=== PATIENT | female | born 2000 | race Hispanic/Latino ===

== ENCOUNTER 2018-08-07 17:28 | Inpatient (IN) | payer OTHER, SELFPAY ==
--- OUTSIDE RECORDS SUMMARY | 2018-08-07 17:30 | XMS REPORT | Continuity of Care Document ---
:2000 Author Organization Interface Problems Problem Status Onset Classification Date Comments Source Date Reported Discharge 09/12/2016 [place] Diagnosis: 6 Abdominal pain ABDOMINAL Active [facility] PAIN 6 [place] Discharge 05/01/2016 [facility] Diagnosis: 6 Pilonidal cyst with abscess CYST ON LOWER Active [facility] BACK 6 [place] Medications Medication Details Route Status Patient Ordering Order Source Instructions Provider Date tramadol 50 mg=1 Active MH hydrochloride 50 tab, PO, 016 [place] MG Oral Tablet BID, X 15 day, # 30 tab, 0 Refill(s) Metoclopramide 10 mg, 2 Inactive MH mL, Route: 016 [place] IVP, Drug form: INJ, ONCE, Dosing Weight 90.909, kg, Priority: STAT, Start date: 09/09/16 19:58:00 CDT, Stop date: 09/09/16 19:58:00 CDTNotes: (Same as: Reglan) Morphine 4 mg, 1 Inactive MH mL, Route: 016 [place] IVP, Drug form: INJ, ONCE, Dosing Weight 90.909, kg, Priority: STAT, Start date: 09/09/16 19:58:00 CDT, Stop date: 09/09/16 19:58:00 CDTNotes: (Same as:MORPhin e Sulfate) Saline Flush 0.9% 10 mL, Inactive MH Route: 016 [place] IVP, Drug Form: INJ, Dosing Weight 90.909, kg, PRN, PRN Line Flush, Start date: 09/09/16 19:58:00 CDT, Duration: 30 day, Stop date: 10/09/16 18:57:00 CSTNotes: (Same as: BD Posiflush) Sodium Chloride 1,000 mL, Inactive MH 0.154 MEQ/ML 2,000 016 [place] Injectable ml/hr, Solution Infuse Over: 30 minutes, Route: IV, 1,000, Drug form: INJ, ONCE, Priority: STAT, Dosing Weight 90.909 kg, Start date: 09/09/16 19:58:00 CDT, Duration: 1 doses or times, Stop date: 09/09/16 19:58:00 CDT ibuprofen 600 mg 600 mg=1 Active oral tablet tab, PO, 016 [place] Q8H, PRN SEVERE PAIN or FEVER, # 30 tab, 0 Refill(s) Acetaminophen 300 1 - 2 tab, Active MG / Codeine PO, Q4H, 016 [place] Phosphate 30 MG PRN Pain, Oral Tablet X 2 day, # [Tylenol with 20 tab, 0 Codeine #3] Refill(s) Tylenol 650 mg, 2 Inactive tab, 016 [place] Route: PO, Drug form: TAB, ONCE, Dosing Weight 95.455, kg, Priority: STAT, Start date: 04/28/16 21:22:00 CDT, Stop date: 04/28/16 21:22:00 CDTNotes: Do not exceed 4 gm/day. (Same as: Tylenol) Zofran ODT 4 mg, 1 Inactive tab, 016 [place] Route: PO, Drug form: TABDIS, ONCE, Dosing Weight 95.455, kg, Priority: STAT, Start date: 04/28/16 21:22:00 CDT, Stop date: 04/28/16 21:22:00 CDTNotes: (Same as: Zofran ODT) Morphine 4 mg, 1 Inactive mL, Route: 016 [place] IM, Drug form: INJ, ONCE, Dosing Weight 95.455, kg, Priority: STAT, Start date: 04/28/16 21:21:00 CDT, Stop date: 04/28/16 21:21:00 CDTNotes: (Same as:MORPhin e Sulfate) Allergies, Adverse Reactions, Alerts Substance Category Reaction Severity Reaction Status Date Comments Source type Reported NKDA Assertion Drug Active allergy [place] Immunizations Immunization Date Given Site Status Last Updated Comments Source Results Order Name Results Value Reference Date Interpretation Comments Source Range CHEM PANEL eGFR 103 10/31 Result Comment: The eGFR is calculated using the CKD-EPI formula. In most young, healthy individuals the eGFR will be >90 mL/ min/1.73m2. The eGFR declines with age. An eGFR of 60-89 may be normal in mL/min/1.7 some populations, particularly the elderly, for whom the CKD-EPI formula has not been extensively validated. Use of the eGFR is not recommended in the following populations: [address] Individuals with unstable creatinine concentrations, including patients and those with serious co-morbid conditions. Patients with extremes in muscle mass or diet. The data above are obtained from the National Kidney Disease Education Program (NKDEP) which additionally recommends that when the eGFR is used in patients with extremes of body mass index for purposes of drug dosing, the eGFR should be multiplied by the estimated BMI. CHEM PANEL ASPARTATE 16 unit/L 0 - 37 09/10 TRANSAMINASE [place] CHEM PANEL Total 7.1 g/dL 6.4 - 8.4 09/10 [place] CHEM PANEL Bili Total 0.5 mg/dL 0.2 - 1.3 09/10 [place] CHEM PANEL Calcium Lvl 9.3 mg/dL 8.5 - 10.5 09/10 [place] CHEM PANEL CO2 26 meq/L 24 - 32 09/10 [place] CHEM PANEL Sodium Lvl 142 meq/L 135 - 145 09/10 [place] CHEM PANEL Chloride Lvl 109 meq/L 95 - 109 09/10 [place] CHEM PANEL Potassium 3.4 meq/L 3.5 - 5.1 09/10 Lvl [place] CHEM PANEL Creatinine 0.83 mg/dL 0.50 - 09/10 MH Lvl 1.40 [place] CHEM PANEL Glucose Lvl 107 mg/dL 70 - 99 09/10 [place] CHEM PANEL BUN 10 mg/dL 7 - 22 09/10 [place] CHEM PANEL Alk Phos 146 unit/L 39 - 136 09/10 [place] CHEM PANEL Albumin Lvl 3.8 g/dL 3.5 - 5.0 09/10 [place] CHEM PANEL ALANINE 31 unit/L 0 - 65 09/10 AMINOTRANSFE [place] RASE CHEM PANEL Globulin 3.3 g/dL 2.7 - 4.2 09/10 [place] CHEM PANEL A/G Ratio 1.2 0.7 - 1.6 09/10 [place] CHEM PANEL AGAP 10.4 meq/L 10.0 - 09/10 MH 20.0 [place] CHEM PANEL B/C Ratio 12 6 - 25 09/10 [place] CHEM PANEL Amylase Lvl 50 unit/L 25 - 115 09/10 [place] CHEM PANEL Lipase Lvl 93 unit/L 73 - 393 09/10 [place] HEMATOLOGY Segs-Bands # 8.6 K/CMM 1.5 - 8.1 09/10 [place] HEMATOLOGY Monocytes # 0.8 K/CMM 0.0 - 0.8 09/10 [place] HEMATOLOGY Basophils 0.6 % 0.0 - 1.0 09/10 [place] HEMATOLOGY Eosinophils 0.2 K/CMM 0.0 - 0.5 09/10 # [place] HEMATOLOGY Lymphocytes 2.5 K/CMM 1.0 - 5.5 09/10 [place] HEMATOLOGY Basophils # 0.1 K/CMM 0.0 - 0.2 09/10 [place] HEMATOLOGY Segs 70.8 % 45.0 - 09/10 MH 75.0 [place] HEMATOLOGY Eosinophils 1.3 % 0.0 - 4.0 09/10 [place] HEMATOLOGY Lymphocytes 20.3 % 20.0 - 09/10 MH 40.0 [place] HEMATOLOGY Monocytes 7.0 % 2.0 - 12.0 09/10 [place] HEMATOLOGY RBC X 10x6 4.33 M/CMM 4.20 - 09/10 MH 5.40 [place] HEMATOLOGY WBC X 10x3 12.2 K/CMM 3.7 - 10.4 09/10 [place] HEMATOLOGY MPV 8.2 fL 7.4 - 10.4 09/10 [place] HEMATOLOGY Hct 39.3 % 36.0 - 09/10 MH 48.0 [place] HEMATOLOGY MCH 30.8 pg 27.0 - 09/10 MH 31.0 [place] HEMATOLOGY Hgb 13.3 g/dL 12.0 - 09/10 MH 16.0 [place] HEMATOLOGY MCV 90.7 fL 80.0 - 09/10 MH 98.0 [place] HEMATOLOGY RDW 12.9 % 11.5 - 09/10 14.5 [place] HEMATOLOGY MCHC 34.0 g/dL 32.0 - 09/10 36.0 [place] HEMATOLOGY Platelet 268 K/CMM 133 - 450 09/10 [place] URINE AND UA Sq Epi Few /LPF Few /LPF 09/10 [place] URINE AND UA Leuk Est Negative Negative 09/10 [place] (09/09/16 8:32 PM) URINE AND UA RBC 21-50 /HPF 0 - 2 09/10 [place] URINE AND UA Bili Negative Negative 09/10 [place] *NA* (09/09/16 8:32 PM) URINE AND UA Blood Large Negative 09/10 [place] *ABN* (09/09/16 8:32 PM) URINE AND UA Nitrite Negative Negative 09/10 [place] (09/09/16 8:32 PM) URINE AND UA WBC 3-5 /HPF None Seen 09/10 STOOL / [place] URINE AND UA Glucose Negative Negative 09/10 [place] (09/09/16 8:32 PM) URINE AND UA Ketones Negative Negative 09/10 [place] *NA* (09/09/16 8:32 PM) URINE AND UA Color Yellow Yellow 09/10 [place] *NA* (09/09/16 8:32 PM) URINE AND UA Spec Grav 1.020 <=1.030 09/10 [place] URINE AND UA Turbidity Slight Cloudy Clear 09/10 STOOL [place] (09/09/16 8:32 PM) URINE AND UA Protein Trace Negative 09/10 [place] *ABN* (09/09/16 8:32 PM) URINE AND UA pH 7.0 5.0 - 8.0 09/10 STOOL [place] URINE AND UA Bacteria Few /HPF None Seen 09/10 STOOL /HPF [place] URINE AND UA 1.0 EU/dL 0.1 - 1.0 09/10 STOOL Urobilinogen [place] URINE CHEM U Preg Negative Negative 09/10 [place] (09/09/16 8:32 PM) Abdomen RUQ Abdomen RUQ Patient Name: DAVONTE DIEZ 09/09 - [facility] US US /2015 - [place] : 2000; Age: 16 years y/o Female MR: [id number] Read by: Landon Sidhu MD Dictated Date/time: 09/09/16 21:39 Electronically Signed by: Landon Sidhu MD 09/09/16 21:40 FINAL REPORT Study: Abdomen RUQ US 09/09/2016 7:58 PM CDT Ordering Physician: Jay Quiroz Comparison: None Clinical Indication: Right upper quadrant abdominal pain; No gallstones are demonstrated. Diffuse increased echogenicity of the liver is noted compatible with fatty infiltration of the liver; however, cirrhosis or chronic hepatitis could have this appearance. No intrahepatic duct dilatation demonstrated. Common duct caliber is 3 mm which is normal. The right kidney measures 10 x 4.2 x 4.7cm. Right kidney has a normal sonographic appearance. The pancreas head has a normal sonographic appearance; the body and tail are obscured by shadowing from overlying bowel gas. Flow at the main portal vein is hepatopedal. IMPRESSION: 1. No gallstones are demonstrated. 2. Diffuse increased echogenicity of the liver is noted compatible with fatty infiltration of the liver; however, cirrhosis or chronic hepatitis could have this appearance. SL: [id number] Vital Signs Vital Sign Value Date Comments Source Temperature Oral (F) 97.6 F 09/10/2016 [facility] Respitory Rate 16 09/10/2016 [facility] Heart Rate 65 09/10/2016 [facility] Systolic (mm Hg) 122 09/10/2016 [facility] Diastolic (mm Hg) 84 09/10/2016 [facility] BMI Calculated 33.35 09/10/2016 [facility] Weight 90.909 09/10/2016 [facility] Height 165.1 cm 09/10/2016 [facility] Heart Rate 66 09/10/2016 [facility] Temperature Oral (F) 97.5 F 09/10/2016 [facility] Respitory Rate 18 09/10/2016 [facility] Systolic (mm Hg) 125 09/10/2016 [facility] Diastolic (mm Hg) 86 09/10/2016 [facility] Temperature Oral (F) 97.8 F 04/29/2016 [facility] Heart Rate 117 04/29/2016 [facility] Systolic (mm Hg) 107 04/29/2016 [facility] Diastolic (mm Hg) 60 04/29/2016 [facility] Temperature Oral (F) 99.2 F 04/29/2016 [facility] Heart Rate 124 04/29/2016 [facility] Height 165.1 cm 04/29/2016 [facility] Weight 95.455 04/29/2016 [facility] Respitory Rate 20 04/29/2016 [facility] Heart Rate 145 04/29/2016 [facility] BMI Calculated 35.02 04/29/2016 [facility] Temperature Oral (F) 99.2 F 04/29/2016 [facility] Systolic (mm Hg) 122 04/29/2016 [facility] Diastolic (mm Hg) 73 04/29/2016 [facility] Encounters Location Location Encounter Encounter Reason Attending ADM DC Status Source Details Type Number For Provider Date Date Visit [facility] [id number] Paulina 04/29 04/29 [place] [facility] /2015 [facility] Emergency [id number] Mae 09/10 09/10 [place] Guerrier /2015 [facility] Procedures Procedure Code Date Perfomer Comments Source
--- OUTSIDE RECORDS SUMMARY | 2018-08-07 17:30 | XMS REPORT | Summary of Care ---
:[address] [facility] Address [address] [place] [address]- Encounter [facility] [place](FIN) [id number] Date(s): 04/28/16 - 04/28/16 [facility] [id number] [place] [phone] Discharge Diagnosis: Pilonidal cyst with abscess Discharge Disposition: Home Attending Physician: Paulina Grimm MD Vital Signs Most recent to oldest 1 2 3 [Reference Range]: Height 165.1 cm (04/28/16 8:34 PM) Temperature Oral [96.4-99.1 97.8 DegF 99.2 DegF 99.2 DegF DegF] (04/28/16 10:38 PM) *HI* *HI* (04/28/16 8:52 PM) (04/28/16 8:34 PM) Blood Pressure [90-140/60-90 107/60 mmHg 122/73 mmHg mmHg] (04/28/16 10:38 PM) (04/28/16 8:34 PM) Respiratory Rate [14-20 BRMIN] 20 BRMIN (04/28/16 8:34 PM) Peripheral Pulse Rate [60-100 117 bpm 124 bpm 145 bpm bpm] *HI* *HI* *HI* (04/28/16 10:38 PM) (04/28/16 8:52 PM) (04/28/16 8:34 PM) Weight 95.455 kg (04/28/16 8:34 PM) Body Mass Index 35.02 m2 (04/28/16 8:34 PM) Problem List No data available for this section Allergies, Adverse Reactions, Alerts Substance Reaction Severity Status NKDA Active Medications ibuprofen 600 mg oral tablet 600 mg=1 tab, PO, Q8H, PRN SEVERE PAIN or FEVER, # 30 tab, 0 Refill(s) Start Date: 04/28/16 Stop Date: 05/08/16 Status: Orderedmorphine Sulfate 4 mg, 1 mL, Route: IM, Drug form: INJ, ONCE, Dosing Weight 95.455, kg, Priority : STAT, Start date: 04/28/16 21:21:00 CDT, Stop date: 04/28/16 21:21:00 CDT Notes: (Same as:MORPhine Sulfate) Start Date: 04/28/16 Stop Date: 04/28/16 Status: CompletedTylenol 650 mg, 2 tab, Route: PO, Drug form: TAB, ONCE, Dosing Weight 95.455, kg, Priority: STAT, Start date: 04/28/16 21:22:00 CDT, Stop date: 04/28/16 21:22:00 CDT Notes: Do not exceed 4 gm/day. (Same as: Tylenol) Start Date: 04/28/16 Stop Date: 04/28/16 Status: CompletedTylenol with Codeine #3 oral tablet 1 - 2 tab, PO, Q4H, PRN Pain, X 2 day, # 20 tab, 0 Refill(s) Start Date: 04/28/16 Stop Date: 04/30/16 Status: OrderedZofran ODT 4 mg, 1 tab, Route: PO, Drug form: TABDIS, ONCE, Dosing Weight 95.455, kg, Priority: STAT, Start date: 04/28/16 21:22:00 CDT, Stop date: 04/28/16 21:22:00 CDT Notes: (Same as: Zofran ODT) Start Date: 04/28/16 Stop Date: 04/28/16 Status: Completed Results No data available for this section Immunizations No data available for this section Procedures No data available for this section Social History Social History Type Response Smoking Status Never smoker; Concerns about tobacco use in household: No; Exposure to Tobacco Smoke None; Cigarette Smoking Last 365 Days No; Reg Smoking Cessation Counseling No Assessment and Plan No data available for this section
--- OUTSIDE RECORDS SUMMARY | 2018-08-07 17:31 | XMS REPORT | Summary of Care ---
:2000 Author Organization [facility] Address [address] [place] [address]- Encounter [facility] [employer](FIN) [id number] Date(s): 09/09/16 - 09/09/[address] [phone] Discharge Diagnosis: Abdominal pain Discharge Disposition: Home or Self Care Attending Physician: Mae Guerrier DO Vital Signs Most recent to oldest [Reference Range]: 1 2 Height 165.1 cm (09/09/16 7:55 PM) Temperature Oral [96.4-99.1 DegF] 97.6 DegF 97.5 DegF (09/09/16 10:39 PM) (09/09/16 7:55 PM) Blood Pressure [90-140/60-90 mmHg] 122/84 mmHg 125/86 mmHg (09/09/16 10:39 PM) (09/09/16 7:55 PM) Respiratory Rate [14-20 BRMIN] 16 BRMIN 18 BRMIN (09/09/16 10:39 PM) (09/09/16 7:55 PM) Peripheral Pulse Rate [60-100 bpm] 65 bpm 66 bpm (09/09/16 10:39 PM) (09/09/16 7:55 PM) Weight 90.909 kg (09/09/16 7:55 PM) Body Mass Index 33.35 m2 (09/09/16 7:55 PM) Problem List No data available for this section Allergies, Adverse Reactions, Alerts Substance Reaction Severity Status NKDA Active Medications metoclopramide 10 mg, 2 mL, Route: IVP, Drug form: INJ, ONCE, Dosing Weight 90.909, kg, Priority: STAT, Start date:09/09/16 19:58:00 CDT, Stop date: 09/09/16 19:58:00 CDT Notes: (Same as: Reglan) Start Date: 09/09/16 Stop Date: 09/09/16 Status: Completedmorphine Sulfate 4 mg, 1 mL, Route: IVP, Drug form: INJ, ONCE, Dosing Weight 90.909, kg, Priority : STAT, Start date: 09/09/16 19:58:00 CDT, Stop date: 09/09/16 19:58:00 CDT Notes: (Same as:MORPhine Sulfate) Start Date: 09/09/16 Stop Date: 09/09/16 Status: CompletedSaline Flush 0.9% 10 mL, Route: IVP, Drug Form: INJ, Dosing Weight 90.909, kg, PRN, PRN Line Flush , Start date: 09/09/16 19:58:00 CDT, Duration: 30 day, Stop date: 10/09/16 18:57 :00 [employer]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 Notes: (Same as: BD Posiflush) Start Date: 09/09/16 Stop Date: 09/09/16 Status: DiscontinuedSodium Chloride 0.9% (Bolus) IV 1,000 mL, 2,000 ml/hr, Infuse Over: 30 minutes, Route: IV, 1,000, Drug form: INJ , ONCE, Priority: STAT, Dosing Weight 90.909 kg, Start date: 09/09/16 19:58:00 CDT, Duration: 1 doses or times, Stop date: 09/09/16 19:58:00 CDT Start Date: 09/09/16 Stop Date: 09/09/16 Status: Completedtramadol 50 mg oral tablet 50 mg=1 tab, PO, BID, X 15 day, # 30 tab, 0 Refill(s) Start Date: 09/09/16 Stop Date: 09/24/16 Status: Ordered Results ELECTROLYTES Most recent to oldest [Reference Range]: 1 Sodium Lvl [135-145 mEq/L] 142 mEq/L (09/09/16 8:32 PM) Potassium Lvl [3.5-5.1 mEq/L] 3.4 mEq/L *LOW* (09/09/16 8:32 PM) Chloride Lvl [95-109 mEq/L] 109 mEq/L (09/09/16 8:32 PM) CO2 [24-32 mEq/L] 26 mEq/L (09/09/16 8:32 PM) AGAP [10.0-20.0 mEq/L] 10.4 mEq/L (09/09/16 8:32 PM) CHEM PANEL Most recent to oldest [Reference Range]: 1 Creatinine Lvl [0.50-1.40 mg/dL] 0.83 mg/dL (09/09/16 8:32 PM) eGFR 103 mL/min/1.73m2 1 *NA* (09/09/16 8:32 PM) BUN [7-22 mg/dL] 10 mg/dL (09/09/16 8:32 PM) B/C Ratio [6-25] 12 (09/09/16 8:32 PM) Glucose Lvl [70-99 mg/dL] 107 mg/dL *HI* (09/09/16 8:32 PM) Total Protein [6.4-8.4 g/dL] 7.1 g/dL (09/09/16 8:32 PM) Albumin Lvl [3.5-5.0 g/dL] 3.8 g/dL (09/09/16 8:32 PM) Globulin [2.7-4.2 g/dL] 3.3 g/dL (09/09/16 8:32 PM) A/G Ratio [0.7-1.6] 1.2 (09/09/16 8:32 PM) Calcium Lvl [8.5-10.5 mg/dL] 9.3 mg/dL (09/09/16 8:32 PM) ALT [0-65 unit/L] 31 unit/L (09/09/16 8:32 PM) AST [0-37 unit/L] 16 unit/L (09/09/16 8:32 PM) Alk Phos [39-136 unit/L] 146 unit/L *HI* (09/09/16 8:32 PM) Bili Total [0.2-1.3 mg/dL] 0.5 mg/dL (09/09/16 8:32 PM) Amylase Lvl [25-115 unit/L] 50 unit/L (09/09/16 8:32 PM) Lipase Lvl [73-393 unit/L] 93 unit/L (09/09/16 8:32 PM) 1Result Comment: The eGFR is calculated using the CKD-EPI formula. In most young , healthy individualsthe eGFR will be >90 mL/min/1.73m2. The eGFR declines with age. An eGFR of 60-89 may be normal in some populations, particularly the elderly, for whom the CKD-EPI formula has not been extensively validated. Use of the eGFR is not recommended in the following populations: Individuals with unstable creatinine concentrations, including patients and those with serious co-morbid conditions. Patients with extremes in muscle mass or diet. The data above are obtained from the National Kidney Disease Education Program ( NKDEP) which additionally recommends that when the eGFR is used in patients with extremes of body mass index for purposesof drug dosing, the eGFR should be multiplied by the estimated BMI.URINE CHEM Most recent to oldest [Reference Range]: 1 U Preg [Negative] Negative (09/09/16 8:32 PM) URINE AND STOOL Most recent to oldest [Reference Range]: 1 UA Turbidity [Clear] Slight Cloudy (09/09/16 8:32 PM) UA Color [Yellow] Yellow *NA* (09/09/16 8:32 PM) UA pH [5.0-8.0] 7.0 (09/09/16 8:32 PM) UA Spec Grav [<=1.030] 1.020 (09/09/16 8:32 PM) UA Glucose [Negative] Negative (09/09/16 8:32 PM) UA Blood [Negative] Large *ABN* (09/09/16 8:32 PM) UA Ketones [Negative] Negative *NA* (09/09/16 8:32 PM) UA Protein [Negative] Trace *ABN* (09/09/16 8:32 PM) UA Urobilinogen [0.1-1.0 EU/dL] 1.0 EU/dL (09/09/16 8:32 PM) UA Bili [Negative] Negative *NA* (09/09/16 8:32 PM) UA Leuk Est [Negative] Negative (09/09/16 8:32 PM) UA Nitrite [Negative] Negative (09/09/16 8:32 PM) UA WBC [None Seen /HPF] 3-5 /HPF (09/09/16 8:32 PM) UA RBC [0-2 /HPF] 21-50 /HPF *ABN* (09/09/16 8:32 PM) UA Bacteria [None Seen /HPF] Few /HPF (09/09/16 8:32 PM) UA Sq Epi [Few /LPF] Few /LPF (09/09/16 8:32 PM) HEMATOLOGY Most recent to oldest [Reference Range]: 1 WBC [3.7-10.4 K/CMM] 12.2 K/CMM *HI* (09/09/16 8:32 PM) RBC [4.20-5.40 M/CMM] 4.33 M/CMM (09/09/16 8:32 PM) Hgb [12.0-16.0 g/dL] 13.3 g/dL (09/09/16 8:32 PM) Hct [36.0-48.0 %] 39.3 % (09/09/16 8:32 PM) MCV [80.0-98.0 fL] 90.7 fL (09/09/16 8:32 PM) MCH [27.0-31.0 pg] 30.8 pg (09/09/16 8:32 PM) MCHC [32.0-36.0 g/dL] 34.0 g/dL (09/09/16 8:32 PM) RDW [11.5-14.5 %] 12.9 % (09/09/16 8:32 PM) Platelet [133-450 K/CMM] 268 K/CMM (09/09/16 8:32 PM) MPV [7.4-10.4 fL] 8.2 fL (09/09/16 8:32 PM) Segs [45.0-75.0 %] 70.8 % (09/09/16 8:32 PM) Lymphocytes [20.0-40.0 %] 20.3 % (09/09/16 8:32 PM) Monocytes [2.0-12.0 %] 7.0 % (09/09/16 8:32 PM) Eosinophils [0.0-4.0 %] 1.3 % (09/09/16 8:32 PM) Basophils [0.0-1.0 %] 0.6 % (09/09/16 8:32 PM) Segs-Bands # [1.5-8.1 K/CMM] 8.6 K/CMM *HI* (09/09/16 8:32 PM) Lymphocytes # [1.0-5.5 K/CMM] 2.5 K/CMM (09/09/16 8:32 PM) Monocytes # [0.0-0.8 K/CMM] 0.8 K/CMM (09/09/16 8:32 PM) Eosinophils # [0.0-0.5 K/CMM] 0.2 K/CMM (09/09/16 8:32 PM) Basophils # [0.0-0.2 K/CMM] 0.1 K/CMM (09/09/16 8:32 PM) Immunizations No data available for this section Procedures No data available for this section Social History Social History Type Response Smoking Status Never smoker; Concerns about tobacco use in household: No; Exposure to Tobacco Smoke None; Cigarette Smoking Last 365 Days No; Reg Smoking Cessation Counseling No Assessment and Plan No data available for this section
[2018-08-07] MEDS ORDERED: KETOROLAC 30 MG/ML INJ ONE (18:56)
[2018-08-07 19:17] LABS: Absolute Lymphocytes (CBC) 2.1 K/uL (0.7-4.9); Absolute Monocytes 0.8 K/uL (0.1-1.3); Absolute Neutrophil 7.6 K/uL (1.8-8.0); Basophils % 0.3 % (0-1.3); Eosinophils % 2.6 % (0-4.4); Hematocrit 36.6 % (36.0-45.0); Lymphocytes % 19.3 % (15.3-44.8); MCH 31.4 pg (27.0-35.0); MCV 92.3 fL (80-100); MPV 7.5 fL (7.6-11.3); Monocytes % 7.2 % (3.3-12.3); RBC Red Blood Cell Count 3.96 M/uL (3.86-4.86)
--- NOTE | 2018-08-07 19:33 | RAD REPORT ---
EXAM DESCRIPTION: US - Abdomen Exam Limited - 08/07/2018 7:09 pm CLINICAL HISTORY: Abdominal pain COMPARISON: None. FINDINGS: Gallbladder is tightly contracted. No gallstones are confirmed. Wall thickness is accentua alejo in a contracted state and is not accurately assessed. No pericholecystic fluid. No common duct stone or biliary tree dilatation identified. IMPRESSION: Limited gallbladder assessment due to contracted state. No gross evidence for gallstones or acute finding. No duct stone or biliary tree dilatation.
[2018-08-07 19:35] LABS: ALT/SGPT 31 U/L (12-78); AST/SGOT 18 U/L (15-37); Albumin 3.5 g/dL (3.4-5.0); Alkaline Phosphatase 129 U/L (45-117); BUN Blood Urea Nitrogen 13 mg/dL (7-18); Bicarbonate 27 mmol/L (21-32); Bilirubin Direct < 0.1 mg/dL (0-0.2); Bilirubin Total 0.2 mg/dL (0.2-1.0); Glucose Level 97 mg/dL (74-106); Lipase 2560 U/L (73-393); Potassium 4.1 mmol/L (3.5-5.1); Protein, Total 7.2 g/dL (6.4-8.2); Sodium Level 141 mmol/L (136-145)
[2018-08-07 19:54] LABS: Urine Blood NEGATIVE (NEG); Urine Glucose NEGATIVE (NEG); Urine Protein NEGATIVE (NEG)
--- NOTE | 2018-08-07 20:19 | RAD REPORT ---
EXAM DESCRIPTION: CT - Abdomen Pelvis W Contrast - 08/07/2018 8:11 pm CLINICAL HISTORY: Abdominal pain, epigastric pain, bloody stool COMPARISON: Gallbladder ultrasound same date TECHNIQUE: Biphasic, helical CT imaging of the abdomen and pelvis was performed following 100 ml non -ionic IV contrast. Oral contrast was given. All CT scans are performed using dose optimization technique as appropriate and may include automated exposure control or mA/KV adjustment according to patient size. FINDINGS: No suspicious findings in the lung bases. The liver, spleen, and pancreas show no suspicious findings. Diffuse fatty infiltration of the liver is present. Gallbladder is contracted. No biliary tree dilatation. Symmetric renal function is seen with no hydronephrosis or suspicious renal mass. Urinary bladder is contracted limiting detail. Uterus and ovaries show no suspicious findings. No dilated bowel loops or bowel wall thickening. Appendix is normal. No free air, free fluid or infla mmatory stranding. No hernia, mass or bulky lymphadenopathy. No adrenal abnormality. No suspicious bony findings. IMPRESSION: Contrast enhanced CT abdomen and pelvis showing no significant or suspicious finding. Liver shows diffuse fatty infiltration.
--- NOTE | 2018-08-07 20:40 | ER ---
Nurse's Notes [facility] Name: Marylin Kendrick Age: 18 yrs Sex: Female : 2000 Arrival Date: 08/07/2018 Time: 17:29 Bed 14 Private MD: None, None Diagnosis: Acute pancreatitis Presentation: 08/07 17:34 Presenting complaint: Patient states: Epigastric pain for the past 2 days. Reports that aj1 every time she poops it has been nothing but blood for the past year. Denies N/V. Denies fever. Transition of care: patient was not received from another setting of care. Onset of symptoms was 2017. Risk Assessment: Do you want to hurt yourself or someone else? Patient reports no desire to harm self or others. Initial Sepsis Screen: Does the patient meet any 2 criteria? HR > 90 bpm. No. Patient's initial sepsis screen is negative. Does the patient have a suspected source of infection? Yes: Acute abdominal pain. Care prior to arrival: None. 17:34 Method Of Arrival: Ambulatory [facility] 17:34 Acuity: JOSE A 3 aj1 Triage Assessment: 17:36 General: Appears in no apparent distress. comfortable, Behavior is calm, cooperative, aj1 appropriate for age. Pain: Pain currently is 7 out of 10 on a pain scale. Neuro: Level of Consciousness is awake, alert, obeys commands. Cardiovascular: Patient's skin is warm and dry. Respiratory: Airway is patent Respiratory effort is even, unlabored, Respiratory pattern is regular, symmetrical. GI: Reports upper abdominal pain, bloody stool. 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 - Social history:: Smoking status: Patient/guardian denies using tobacco. - Ebola Screening: : Patient denies travel to an Ebola-affected area in the 21 days before illness onset. Screenin:30 Abuse screen: Denies threats or abuse. Denies injuries from another. Nutritional kr2 screening: No deficits noted. Tuberculosis screening: No symptoms or risk factors identified. Fall Risk None identified. Assessment: 18:30 General: Appears in no apparent distress. uncomfortable, well groomed, Behavior is kr2 calm, cooperative, appropriate for age. Pain: Complains of pain in left upper quadrant Pain radiates to epigastric area, anterior aspect of right lateral abdomen and right upper quadrant Pain currently is 6 out of 10 on a pain scale. Quality of pain is described as sharp, Is continuous, Alleviated by nothing. Aggravated by eating. Neuro: Level of Consciousness is awake, alert, obeys commands, Oriented to person, place, time, situation, Appropriate for age. Cardiovascular: Capillary refill < 3 seconds in bilateral fingers Patient's skin is warm and dry. Respiratory: Airway is patent Respiratory effort is even, unlabored, Respiratory pattern is regular, symmetrical. GI: Abdomen is non-distended, obese, Bowel sounds present X 4 quads. Abd is soft and non tender X 4 quads. Reports bloody stool, nausea, bloody stool for a year. States she has an appt to see a physician next week but today she started having severe upper abdominal pain. : Denies burning with urination. EENT: Oral mucosa is moist. Derm: Skin is intact, is healthy with good turgor, Skin is pink, warm \T\ dry. Musculoskeletal: Circulation, motion, and sensation intact. 19:10 Reassessment: Patient appears in no apparent distress at this time. Patient and/or kr2 family updated on plan of care and expected duration. Pain level reassessed. Patient is alert, oriented x 3, equal unlabored respirations, skin warm/dry/pink. 20:11 Reassessment: Patient in radiology at this time. kr2 21:05 Reassessment: Patient appears in no apparent distress at this time. Patient and/or kr2 family updated on plan of care and expected duration. Pain level reassessed. Patient is alert, oriented x 3, equal unlabored respirations, skin warm/dry/pink. Patient states feeling better. Patient states symptoms have improved. 22:00 Reassessment: Patient appears in no apparent distress at this time. Patient and/or kr2 family updated on plan of care and expected duration. Pain level reassessed. Patient is alert, oriented x 3, equal unlabored respirations, skin warm/dry/pink. Patient states feeling better. Vital Signs: 17:36 BP 134 / 96; Pulse 79; Resp 18; Temp 97.5(TE); Pulse Ox 99% on R/A; Weight 90.72 kg aj1 (R); Height 5 ft. 5 in. (165.10 cm) (R); 20:00 BP 126 / 71; Pulse 86; Resp 17; Pulse Ox 99% on R/A; kr2 21:00 BP 126 / 78; Pulse 80; Resp 16; Pulse Ox 99% on R/A; kr2 22:00 BP 122 / 80; Pulse 82; Resp 17; Pulse Ox 99% on R/A; kr2 17:36 Body Mass Index 33.28 (90.72 kg, 165.10 cm) aj1 ED Course: 17:29 Patient arrived in ED. sb2 17:30 None, None is Private Physician. sb2 17:34 Sherie Jones FNP-C is [facility]. kb 17:34 Nicanor Luke MD is Attending Physician. kb 17:36 Triage completed. aj1 17:36 Arm band placed on Patient placed in waiting room, Patient notified of wait time. aj1 18:22 Ruth Leslie, RN is Primary Nurse. ph 18:30 Pulse ox on. NIBP on. jp3 18:35 Missed attempt(s): 22 gauge in right forearm. Bleeding controlled, band aid applied, jp3 catheter tip intact. 18:45 Inserted saline lock: 22 gauge in left forearm, using aseptic technique. jp3 18:50 Initial lab(s) drawn, by me, sent to lab. Urine collected: clean catch specimen, clear, jp3 adilia colored, Amount Voided: 50mL. 18:54 Call light in reach. Side rails up X 1. Warm blanket given. jp3 19:11 US Abdomen Limited In Process Unspecified. EDMS 20:[address] via wheelchair. nj 20:11 CT completed. Patient tolerated procedure well. Patient moved back from CT. nj 20:11 CT Abd/Pelvis - W/Contrast In Process Unspecified. EDMS 20:40 Tyra Najera MD is Hospitalizing Provider. kb 22:30 Patient admitted, IV remains in place. kr2 22:40 No provider procedures requiring assistance completed. kr2 Administered Medications: 19:00 Drug: TORadol 30 mg Route: IVP; Site: left forearm; kr2 20:12 Follow up: Response: No adverse reaction; Pain is decreased kr2 20:38 Drug: NS 0.9% 1000 ml Route: IV; Rate: 1000 ml; Site: left forearm; kr2 21:30 Follow up: Response: No adverse reaction; IV Status: Completed infusion kr2 Outcome: 20:40 Decision to Hospitalize by Provider. kb 22:40 Admitted to Med/surg accompanied by tech, family with patient, via wheelchair, room kr2 225, with chart, Report called to NIXON Villegas 22:40 Condition: stable 22:40 Instructed on the need for admit, Demonstrated understanding of instructions. 22:42 Patient left the ED. kr2 Signatures: Dispatcher [employer] EDMS Sherie Jones, COMPONENT ENGINEER-C COMPONENT ENGINEER-Ckb Olga Sidhu, RN RN aj1 Ruth Leslie, RN RN jaspal Walter, Karina Alcantar RN RN kr2 Dena Kendrick sb2 Rodolfo Lozano jp3 Corrections: (The following items were deleted from the chart) 17:38 17:36 Arm band placed on Patient placed in an exam room, aj1 aj1 21:06 19:00 TORadol 30 mg IVP in right antecubital kr2 kr2
--- NOTE | 2018-08-07 20:41 | EDPHYS ---
Physician Documentation [facility] Name: Marylin Kendrick Age: 18 yrs Sex: Female : 2000 Arrival Date: 08/07/2018 Time: 17:29 Bed 14 Private MD: None, None ED Physician Nicanor Luke HPI: 08/07 18:21 This 18 yrs old Female presents to ER via Ambulatory with complaints of kb Abdominal Pain. 18:21 The patient has not experienced similar symptoms in the past. The patient has not kb recently seen a physician. 18:22 The patient presents with abdominal pain in the right upper quadrant. Onset: The kb symptoms/episode began/occurred 2 day(s) ago, and became worse 2 day(s) ago. The symptoms do not radiate. Associated signs and symptoms: Pertinent positives: constipation. The symptoms are described as intermittent. Modifying factors: The symptoms are alleviated by nothing, the symptoms are aggravated by food, pressure. Severity of pain: At its worst the pain was moderate in the emergency department the pain is unchanged. 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 - Social history:: Smoking status: Patient/guardian denies using tobacco. - Ebola Screening: : Patient denies travel to an Ebola-affected area in the 21 days before illness onset. ROS: 18:21 Constitutional: Negative for fever, chills, and weight loss, Cardiovascular: Negative kb for chest pain, palpitations, and edema, Respiratory: Negative for shortness of breath, cough, wheezing, and pleuritic chest pain, Back: Negative for injury and pain, : Negative for injury, bleeding, discharge, and swelling, MS/Extremity: Negative for injury and deformity, Skin: Negative for injury, rash, and discoloration, Neuro: Negative for headache, weakness, numbness, tingling, and seizure. 18:21 Abdomen/GI: Positive for abdominal pain, constipation. Exam: 18:21 Constitutional: This is a well developed, well nourished patient who is awake, alert, kb and in no acute distress. Head/Face: Normocephalic, atraumatic. Chest/axilla: Normal chest wall appearance and motion. Nontender with no deformity. No lesions are appreciated. Cardiovascular: Regular rate and rhythm with a normal S1 and S2. No gallops, murmurs, or rubs. Normal PMI, no JVD. No pulse deficits. Respiratory: Lungs have equal breath sounds bilaterally, clear to auscultation and percussion. No rales, rhonchi or wheezes noted. No increased work of breathing, no retractions or nasal flaring. Back: No spinal tenderness. No costovertebral tenderness. Full range of motion. Skin: Warm, dry with normal turgor. Normal color with no rashes, no lesions, and no evidence of cellulitis. MS/ Extremity: Pulses equal, no cyanosis. Neurovascular intact. Full, normal range of motion. Neuro: Awake and alert, GCS 15, oriented to person, place, time, and situation. Cranial nerves II-XII grossly intact. Motor strength 5/5 in all extremities. Sensory grossly intact. Cerebellar exam normal. Normal gait. 18:21 Abdomen/GI: Inspection: obese Bowel sounds: normal, in all quadrants, Palpation: soft, in all quadrants, mild abdominal tenderness, in the left upper quadrant, right lower quadrant and left lower quadrant, moderate abdominal tenderness, in the right upper quadrant. Vital Signs: 17:36 BP 134 / 96; Pulse 79; Resp 18; Temp 97.5(TE); Pulse Ox 99% on R/A; Weight 90.72 kg aj1 (R); Height 5 ft. 5 in. (165.10 cm) (R); 20:00 BP 126 / 71; Pulse 86; Resp 17; Pulse Ox 99% on R/A; kr2 21:00 BP 126 / 78; Pulse 80; Resp 16; Pulse Ox 99% on R/A; kr2 22:00 BP 122 / 80; Pulse 82; Resp 17; Pulse Ox 99% on R/A; kr2 17:36 Body Mass Index 33.28 (90.72 kg, 165.10 cm) aj1 MDM: 18:05 Patient medically screened. kb 18:20 Data reviewed: vital signs, nurses notes. Data interpreted: Pulse oximetry: on room air kb is 99 %. Interpretation: normal. 20:38 Counseling: I had a detailed discussion with the patient and/or guardian regarding: the kb historical points, exam findings, and any diagnostic results supporting the discharge/admit diagnosis, lab results, radiology results, the need for further work-up and treatment in the hospital. Physician consultation: Tyra Najera MD was contacted at 20:39, regarding admission, to the medical/surgical unit. patient's condition, and will see patient in ED, shortly. 08/07 18:14 Order name: Basic Metabolic Panel; Complete Time: 19:36 kb 08/07 18:14 Order name: CBC with Diff; Complete Time: 19:27 kb 08/07 18:14 Order name: Hepatic Function; Complete Time: 19:36 kb 08/07 18:14 Order name: Lipase; Complete Time: 19:36 kb 08/07 19:19 Order name: Urine Dipstick--Ancillary (enter results); Complete Time: 19:56 mw2 08/07 19:19 Order name: Urine --Ancillary (enter results); Complete Time: 19:56 mw2 08/07 18:14 Order name: IV Saline Lock; Complete Time: 19:00 kb 08/07 18:14 Order name: Labs collected and sent; Complete Time: 19:00 kb 08/07 18:14 Order name: US Abdomen Limited; Complete Time: 19:36 kb 08/07 19:36 Order name: CT Abd/Pelvis - W/Contrast; Complete Time: 20:26 kb Administered Medications: 19:00 Drug: TORadol 30 mg Route: IVP; Site: left forearm; kr2 20:12 Follow up: Response: No adverse reaction; Pain is decreased kr2 20:38 Drug: NS 0.9% 1000 ml Route: IV; Rate: 1000 ml; Site: left forearm; kr2 21:30 Follow up: Response: No adverse reaction; IV Status: Completed infusion kr2 Disposition: 08/08 07:36 Co-signature as Attending Physician, Nicanor Lkue MD. rn Disposition: 08/07/18 20:40 Hospitalization ordered by Tyra Najera for Observation. Preliminary diagnosis is Acute pancreatitis. - Bed requested for Telemetry/MedSurg (observation). - Status is Observation. kr2 - Condition is Stable. - Problem is new. - Symptoms are unchanged. UTI on Admission? No Signatures: Dispatcher [employer] EDAR Sherie Jones, METAL STAMPER-C METAL STAMPER-Ckb Olga Sidhu, RN RN aj1 Naheed Huitron, RN RN mw Nicanor Luke MD MD rn Reaves, Karey, NIXON RN kr2 Corrections: (The following items were deleted from the chart) 08/07 20:47 20:40 Hospitalization Ordered by Tyra Najera MD for Observation. Preliminary mw diagnosis is Acute pancreatitis. Bed requested for Telemetry/MedSurg (observation). Status is Observation. Condition is Stable. Problem is new. Symptoms are unchanged. UTI on Admission? No. kb 22:42 20:47 08/07/2018 20:40 Hospitalization Ordered by Tyra Najera MD for Observation. kr2 Preliminary diagnosis is Acute pancreatitis. Bed requested for Telemetry/MedSurg (observation). Status is Observation. Condition is Stable. Problem is new. Symptoms are unchanged. UTI on Admission? No. mw
[2018-08-07] MEDS ORDERED: NA CHLORIDE 0.9% 1,000 ML ONE (20:44)
[2018-08-07] MEDS ORDERED: MAGNESIUM HYDROXIDE 8% 30 ML PO PRN (21:39)
[2018-08-07] MEDS: NA CHLORIDE 0.9% 1,000 ML IV SCH (23:18)
[2018-08-07] MEDS: ALPRAZOLAM 0.25 MG TABLET PO PRN (23:19)
[2018-08-08] MEDS: MORPHINE 4 MG/ML SYR IV PRN ×5 (00:12→20:26)
[2018-08-08] MEDS: ONDANSETRON 4 MG/2 ML VIAL IV PRN ×4 (04:12→20:26)
[2018-08-08] MEDS: NA CHLORIDE 0.9% 1,000 ML IV SCH ×3 (04:22→22:00)
--- NOTE | 2018-08-08 05:51 | P.HP ---
Certification for Inpatient Patient admitted to: Observation With expected LOS: <2 Midnights Patient will require the following post-hospital care: None Practitioner: I am a practitioner with admitting privileges, knowledge of patient current condition, hospital course, and medical plan of care. Services: Services provided to patient in accordance with Admission requirements found in Title 42 Section 412.3 of the Code of Federal Regulations Patient History Date of Service: 08/07/18 Reason for admission: Abdominal pain/acute pancreatitis History of Present Illness: Patient is a 18-year-old female who is admitted to the hospital with abdominal discomfort. Pain was mainly in the epigastric region. There was radiation to her back. Patient came to the emergency room because she was having intractable nausea and vomiting. Her workup in the ER revealed she had acute pancreatitis. Patient was started on pain medication along with aggressive IV hydration. She was also made NPO. Plan to do MRCP to further evaluate her pancreatitis. She denies having a history of alcohol use or gallstones. She is never been told there is anything wrong with her cholesterol panel. She will be admitted for further evaluation. Allergies No Known Allergies Allergy (Unverified 08/07/18 20:57) Home Medications: NK [No Home Meds] 08/07/18 - Past Medical/Surgical History Has patient received pneumonia vaccine in the past: No Diabetic: No -: Acute on chronic pancreatitis Past Surgical History: Patient denies surgical history - Family History Father Medical History: Other (see notes) Notes: hypotension Mother Medical History: Other (see notes) Notes: asthma - Social History Smoking Status: Never smoker Alcohol use: Yes CD- Drugs: No Caffeine use: Yes Place of Residence: Home Review of Systems 10-point ROS is otherwise unremarkable Gastrointestinal: Nausea, Vomiting, Abdominal Pain Physical Examination - Vital Signs Temperature: 97.1 F Blood Pressure: 126/66 Pulse: 60 Respirations: 18 Pulse Ox (%): 99 - Physical Exam General: Alert, In no apparent distress, Oriented x3 HEENT: Atraumatic, PERRLA, Mucous membr. moist/pink, EOMI, Sclerae nonicteric Neck: Supple, 2+ carotid pulse no bruit, No LAD, Without JVD or thyroid abnormality Respiratory: Clear to auscultation bilaterally, Normal air movement Cardiovascular: Regular rate/rhythm, Normal S1 S2, No murmurs Gastrointestinal: Soft and benign, No rebound, No guarding, Distended, Tenderness Musculoskeletal: No tenderness Integumentary: No rashes Neurological: Normal gait, Normal speech, Normal strength at 5/5 x4 extr, Normal tone, Sensation intact, Cranial nerves 3-12 intact, Normal affect Lymphatics: No axilla or inguinal lymphadenopathy - Studies Laboratory Data (last 24 hrs) 08/07/18 18:40: WBC 10.8, Hgb 12.5, Hct 36.6, Plt Count 349 08/07/18 18:40: Sodium 141, Potassium 4.1, BUN 13, Creatinine 0.90, Glucose 97, Total Bilirubin 0.2, AST 18, ALT 31, Alkaline Phosphatase 129 H, Lipase 2560 H Assessment & Plan - Problems (Diagnosis) (1) Acute pancreatitis Current Visit: Yes Status: Acute (2) Intractable nausea and vomiting Current Visit: Yes Status: Acute - Plan 1. Continue with IV hydration 2. MRCP to further evaluate 3. Continue with pain control 4. NPO 5. GI consultation; 6. Serial H&H, and we will monitor CBC, BMP, LFTs and lipase along with electrolytes. 7. GI and DVT prophylaxis Discharge Plan: Home Plan to discharge in: 48 Hours - Advance Directives Does patient have a Living Will: No Does patient have a Durable POA for Healthcare: No - Code Status/Comfort Care Code Status Assessed: Yes Code Status: Full Code Critical Care: No Time Spent Managing PTS Care (In Minutes): 50
[2018-08-08] MEDS ORDERED: INFLUENZA VACCINE (for 3y+) 0.5 ML DOSE IMVAC ONE (06:00)
[2018-08-08 06:11] LABS: Absolute Lymphocytes (CBC) 1.9 K/uL (0.7-4.9); Absolute Monocytes 0.7 K/uL (0.1-1.3); Absolute Neutrophil 7.4 K/uL (1.8-8.0); Basophils % 0.2 % (0-1.3); Eosinophils % 2.7 % (0-4.4); Hematocrit 32.3 % (36.0-45.0); Lymphocytes % 18.3 % (15.3-44.8); MCH 32.2 pg (27.0-35.0); MCV 92.1 fL (80-100); MPV 7.6 fL (7.6-11.3); Monocytes % 7.1 % (3.3-12.3); RBC Red Blood Cell Count 3.51 M/uL (3.86-4.86)
[2018-08-08 06:26] LABS: ALT/SGPT 26 U/L (12-78); AST/SGOT 15 U/L (15-37); Alkaline Phosphatase 103 U/L (45-117); BUN Blood Urea Nitrogen 11 mg/dL (7-18); Bicarbonate 24 mmol/L (21-32); Bilirubin Total 0.3 mg/dL (0.2-1.0); Glucose Level 105 mg/dL (74-106); HDL Cholesterol 31 mg/dL (40-60); LDL Cholesterol, Calculated 79 (<130); Lipase 2137 U/L (73-393); Magnesium 2.1 mg/dL (1.8-2.4); Phosphorus 3.5 mg/dL (2.5-4.9); Protein, Total 6.1 g/dL (6.4-8.2); Sodium Level 140 mmol/L (136-145)
[2018-08-08] MEDS ORDERED: PNEUMOCOCCAL VACCINE 0.5 ML IMVAC ONE (08:00)
[2018-08-08] MEDS: ENOXAPARIN 40 MG/0.4 ML SQ SCH (09:22)
[2018-08-08 10:25] LABS: T4,Total 8.2 ug/dL (4.8-13.9); Thyroid Stimulating Hormone 1.4 uIU/mL (0.360-3.740)
--- NOTE | 2018-08-08 17:29 | PN ---
Date of Progress Note: 08/08/2018 Subjective: The patient seen and examined. Chart reviewed and case discussed with RN. The patient states she is still having some abdominal discomfort and nausea, however, the pain is improved. Review of Systems: Negative except as above. Medications: List reviewed. Objective: Vital Signs: Temperature 98.1, heart rate 73, blood pressure 108/58, respirations 18, O2 saturations 98% on room air. General: Awake, alert, oriented x3. Some mild distress. Morbidly obese female. BMI 41. CV: S1, S2. Regular rate and rhythm. Peripheral pulses present. Respiratory: Moving air well bilaterally. No wheezing. Gastrointestinal: Abdomen is soft. Mild tenderness to palpation in the epigastric region. No rebou nd or guarding. No palpable masses. Bowel sounds positive. Extremities: No clubbing, cyanosis, or edema. Neurologic: Nonfocal. Laboratory Data: Sodium 140, potassium 4, chloride 110, CO2 24, BUN 11, creatinine 0.6, glucose 105, calcium 8.5, phosphorus 3.5, magnesium 2.1. AST 15, ALT 26, alkaline phosphatase 103. Total biliru bin 0.3, albumin 3, triglycerides 98, lipase 2137. TSH 1.4. T4 is 8.2. WBC 10.3, H and H 11.3 and 32.3, platelets 317, neutrophils 71%. CT scan of the abdomen and pelvis personally reviewed shows no significant or suspicious findings. Liver shows diffuse fatty infiltration. Abdominal ultrasound s hows no gross evidence for gallstones or acute finding. No duct stone or biliary tree dilatation. Assessment And Plan: A 18-year-old female with: 1.Acute pancreatitis of unclear etiology. Triglycerides are normal. No history of significant alco hol use. No gallstones seen on imaging. We will consult GI if available. We will continue with con servative treatment with IV fluids. The patient's nausea has improved. We will start early feeding with low-fat diet. Monitor lipase level. 2.Intractable nausea, vomiting, improved. 3.Morbid obesity. BMI 41. TSH checked, which is normal. 4.Normocytic normochromic anemia, likely dilutional. 5.Gastrointestinal and deep venous thrombosis prophylaxis, PPI and Lovenox. Plan: Continue current treatment. /ESTHER Voice ID: [id number] Report ID: [id number]
[2018-08-08] MEDS ORDERED: Ringers Lactate 1,000 ML IV SCH (20:00)
[2018-08-08] MEDS: ACETAMINOPHEN 500 MG TAB PO PRN (22:50)
[2018-08-09] MEDS: NA CHLORIDE 0.9% 1,000 ML IV SCH ×4 (05:36→23:41)
[2018-08-09] MEDS: ONDANSETRON 4 MG/2 ML VIAL IV PRN ×2 (05:42→23:42)
[2018-08-09] MEDS: MORPHINE 4 MG/ML SYR IV PRN ×3 (05:43→23:42)
[2018-08-09 06:35] LABS: Absolute Lymphocytes (CBC) 1.3 K/uL (0.7-4.9); Absolute Monocytes 0.7 K/uL (0.1-1.3); Absolute Neutrophil 5.6 K/uL (1.8-8.0); Basophils % 0.4 % (0-1.3); Eosinophils % 2.7 % (0-4.4); Hematocrit 32.3 % (36.0-45.0); Lymphocytes % 16.3 % (15.3-44.8); MCH 32.2 pg (27.0-35.0); MCV 91.8 fL (80-100); MPV 7.8 fL (7.6-11.3); Monocytes % 8.6 % (3.3-12.3); RBC Red Blood Cell Count 3.51 M/uL (3.86-4.86)
[2018-08-09 06:57] LABS: ALT/SGPT 64 U/L (12-78); AST/SGOT 62 U/L (15-37); Albumin 3.1 g/dL (3.4-5.0); Alkaline Phosphatase 119 U/L (45-117); BUN Blood Urea Nitrogen 10 mg/dL (7-18); Bicarbonate 26 mmol/L (21-32); Bilirubin Total 0.5 mg/dL (0.2-1.0); Glucose Level 99 mg/dL (74-106); Lipase 1264 U/L (73-393); Potassium 4.1 mmol/L (3.5-5.1); Protein, Total 6.5 g/dL (6.4-8.2); Sodium Level 140 mmol/L (136-145)
[2018-08-09] MEDS: ENOXAPARIN 40 MG/0.4 ML SQ SCH (09:34)
[2018-08-09] MEDS: ACETAMINOPHEN 500 MG TAB PO PRN ×2 (13:13→18:08)
--- NOTE | 2018-08-09 15:42 | P.PN ---
Subjective Date of Service: 08/09/18 Chief Complaint: Abdominal pain/acute pancreatitis doing better no pain Physical Examination - Vital Signs Temperature: 98.0 F Blood Pressure: 108/66 Pulse: 72 Respirations: 16 Pulse Ox (%): 97 - Physical Exam General: Alert, In no apparent distress HEENT: Atraumatic, PERRLA, EOMI Neck: Supple, JVD not distended Respiratory: Clear to auscultation bilaterally, Normal air movement Cardiovascular: Regular rate/rhythm, Normal S1 S2 Gastrointestinal: Normal bowel sounds, No tenderness Musculoskeletal: No tenderness Integumentary: No rashes Neurological: Normal speech, Normal tone, Normal affect Lymphatics: No axilla or inguinal lymphadenopathy - Studies Medications List Reviewed: Yes Assessment And Plan - Current Problems (Diagnosis) (1) Acute pancreatitis Current Visit: Yes Status: Acute - Plan cont IVF Cont pain meds NPO
[2018-08-10] MEDS: NA CHLORIDE 0.9% 1,000 ML IV SCH ×3 (06:05→20:37)
[2018-08-10] MEDS: ENOXAPARIN 40 MG/0.4 ML SQ SCH (09:57)
--- NOTE | 2018-08-10 13:19 | P.PN ---
Subjective Date of Service: 08/10/18 Chief Complaint: Abdominal pain/acute pancreatitis doing better no pain Physical Examination - Vital Signs Temperature: 98.2 F Blood Pressure: 109/64 Pulse: 78 Respirations: 16 Pulse Ox (%): 97 - Physical Exam General: Alert, In no apparent distress HEENT: Atraumatic, PERRLA, EOMI Neck: Supple, JVD not distended Respiratory: Clear to auscultation bilaterally, Normal air movement Cardiovascular: Regular rate/rhythm, Normal S1 S2 Gastrointestinal: Normal bowel sounds, No tenderness Musculoskeletal: No tenderness Integumentary: No rashes Neurological: Normal speech, Normal tone, Normal affect Lymphatics: No axilla or inguinal lymphadenopathy - Studies Medications List Reviewed: Yes Assessment And Plan - Current Problems (Diagnosis) (1) Acute pancreatitis Current Visit: Yes Status: Acute - Plan cont IVF Cont pain meds NPO MRCP tomorrow
[2018-08-10] MEDS: MORPHINE 4 MG/ML SYR IV PRN ×2 (14:51→23:12)
[2018-08-10] MEDS: ONDANSETRON 4 MG/2 ML VIAL IV PRN (23:12)
[2018-08-11 05:40] LABS: ALT/SGPT 43 U/L (12-78); AST/SGOT 19 U/L (15-37); Alkaline Phosphatase 107 U/L (45-117); BUN Blood Urea Nitrogen 6 mg/dL (7-18); Bicarbonate 23 mmol/L (21-32); Bilirubin Total 0.4 mg/dL (0.2-1.0); Glucose Level 69 mg/dL (74-106); Lipase 167 U/L (73-393); Protein, Total 6.7 g/dL (6.4-8.2); Sodium Level 141 mmol/L (136-145)
[2018-08-11] MEDS: NA CHLORIDE 0.9% 1,000 ML IV SCH ×4 (05:48→20:39)
[2018-08-11] MEDS: ENOXAPARIN 40 MG/0.4 ML SQ SCH (09:06)
[2018-08-11] MEDS: ACETAMINOPHEN 500 MG TAB PO PRN ×2 (12:55→22:59)
--- NOTE | 2018-08-11 17:56 | P.PN ---
Subjective Date of Service: 08/11/18 Chief Complaint: Abdominal pain/acute pancreatitis she has no abd pain today, lipase normal Physical Examination - Vital Signs Temperature: 97.5 F Blood Pressure: 116/68 Pulse: 70 Respirations: 18 Pulse Ox (%): 99 - Physical Exam General: Alert, In no apparent distress HEENT: Atraumatic, PERRLA, EOMI Neck: Supple, JVD not distended Respiratory: Clear to auscultation bilaterally, Normal air movement Cardiovascular: Regular rate/rhythm, Normal S1 S2 Gastrointestinal: Normal bowel sounds, No tenderness Musculoskeletal: No tenderness Integumentary: No rashes Neurological: Normal speech, Normal tone, Normal affect Lymphatics: No axilla or inguinal lymphadenopathy - Studies Medications List Reviewed: Yes Assessment And Plan - Current Problems (Diagnosis) (1) Acute pancreatitis Current Visit: Yes Status: Acute - Plan Advance diet after MRCP MRCP pending
--- NOTE | 2018-08-11 22:48 | RAD REPORT ---
EXAM DESCRIPTION: MRI - Cholangiogram - 08/11/2018 9:52 pm CLINICAL HISTORY: Abdominal pain COMPARISON: CT imaging August 07, ultrasound August 07 TECHNIQUE: Axial and coronal heavily T2 weighted imaging acquisitions performed. MRCP imaging was pe rformed. Coronal static and reformatted images were generated. Horizontal and vertical 3D rotational images generated using maximum intensity projection protocol. FINDINGS: No gallbladder abnormality identifiable on this study. Intrahepatic and extrahepatic bile ducts are normal diameter. No intraluminal filling defect, strictu re or mass. No other significant or suspicious finding noted. IMPRESSION: Negative MRCP examination.
[2018-08-12] MEDS: ALPRAZOLAM 0.25 MG TABLET PO PRN (01:02)
[2018-08-12] MEDS: NA CHLORIDE 0.9% 1,000 ML IV SCH ×2 (03:49→10:48)
[2018-08-12] MEDS: ENOXAPARIN 40 MG/0.4 ML SQ SCH (09:00)
--- NOTE | 2018-08-12 10:06 | P.DS ---
Admission Date: 08/07/18 Discharge Date: 08/12/18 Primary Care Provider: None Disposition: ROUTINE DISCHARGE Discharge Condition: GOOD Reason for Admission: Abdominal pain/acute pancreatitis Consultations: GI-Dr. Watson Procedures: CT Scan: COMPARISON: Gallbladder ultrasound same date TECHNIQUE: Biphasic, helical CT imaging of the abdomen and pelvis was performed following 100 ml non-ionic IV contrast. Oral contrast was given. All CT scans are performed using dose optimization technique as appropriate and may include automated exposure control or mA/KV adjustment according to patient size. FINDINGS: No suspicious findings in the lung bases. The liver, spleen, and pancreas show no suspicious findings. Diffuse fatty infiltration of the liver is present. Gallbladder is contracted. No biliary tree dilatation. Symmetric renal function is seen with no hydronephrosis or suspicious renal mass. Urinary bladder is contracted limiting detail. Uterus and ovaries show no suspicious findings. No dilated bowel loops or bowel wall thickening. Appendix is normal. No free air , free fluid or inflammatory stranding. No hernia, mass or bulky lymphadenopathy. No adrenal abnormality. No suspicious bony findings. IMPRESSION: Contrast enhanced CT abdomen and pelvis showing no significant or suspicious finding. Liver shows diffuse fatty infiltration. Abdominal US: CLINICAL HISTORY: Abdominal pain COMPARISON: None. FINDINGS: Gallbladder is tightly contracted. No gallstones are confirmed. Wall thickness is accentuated in a contracted state and is not accurately assessed. No pericholecystic fluid. No common duct stone or biliary tree dilatation identified. IMPRESSION: Limited gallbladder assessment due to contracted state. No gross evidence for gallstones or acute finding. No duct stone or biliary tree dilatation. MRCP: COMPARISON: CT imaging August 07, ultrasound August 07 TECHNIQUE: Axial and coronal heavily T2 weighted imaging acquisitions performed. MRCP imaging was performed. Coronal static and reformatted images were generated. Horizontal and vertical 3D rotational images generated using maximum intensity projection protocol. FINDINGS: No gallbladder abnormality identifiable on this study. Intrahepatic and extrahepatic bile ducts are normal diameter. No intraluminal filling defect, stricture or mass. No other significant or suspicious finding noted. IMPRESSION: Negative MRCP examination. Medical Problem List: Abdominal pain, nausea secondary to Acute pancreatitis likely viral Fatty liver per CT scan Obesity, BMI 41 GERD Brief History of Present Illness: 18-year-old female present emergency room with nausea, vomiting and epigastric pain. Patient found to have elevated lipase. Pancreatitis suspected. Patient admitted for treatment. Hospital Course: Patient presented with epigastric abdominal pain, nausea and vomiting. Lipase levels were elevated. CT scan unremarkable except fatty liver. Patient found to have acute pancreatitis etiology unknown but likely viral. Patient is not a heavy drinker. Lipid panel within normal range. Abdominal ultrasound and MRCP were both unremarkable. Patient was seen by GI. No GI intervention was required. At discharge her symptoms resolved. At discharge she will be provided Protonix 40 mg daily and Zofran 4 mg one pill three times a day as needed for nausea. Recommendation is for the patient to follow up with GI to further address and monitor. Patient may have underlying [facility]D. [facility] 40 mg one pill daily. Recommendation is for the patient to follow up with GI. Patient has fatty liver per CT scan. Lifestyle education and information on fatty liver will be provided. Patient with obesity, BMI 41. Patient will continue with lifestyle modification education. Patient may return to work after this weekend. Vital Signs/Physical Exam: Temp Pulse Resp BP Pulse Ox 96.9 F 65 16 116/79 97 08/12/18 04:00 08/12/18 04:00 08/12/18 04:00 08/12/18 04:00 08/12/18 04:00 General: Alert, In no apparent distress, Oriented x3, Cooperative HEENT: Atraumatic Neck: Supple Respiratory: Clear to auscultation bilaterally, Normal air movement Cardiovascular: Normal pulses, Regular rate/rhythm Gastrointestinal: Normal bowel sounds, Soft and benign, Non-distended, No tenderness, No masses, No rebound, No guarding Musculoskeletal: No erythema, No tenderness, No warmth Integumentary: No tenderness/swelling, No erythema, No warmth, No cyanosis Neurological: Normal speech, Normal strength at 5/5 x4 extr, Normal tone, Normal affect Laboratory Data at Discharge: WBC 7.8 K/uL (4.3-10.9) D 08/09/18 06:00 Hgb 11.3 g/dL (12.0-15.0) L 08/09/18 06:00 Hct 32.3 % (36.0-45.0) L 08/09/18 06:00 Plt Count 307 K/uL (152-406) 08/09/18 06:00 Sodium 141 mmol/L (136-145) 08/11/18 05:11 Potassium 4.0 mmol/L (3.5-5.1) 08/11/18 05:11 BUN 6 mg/dL (7-18) L 08/11/18 05:11 Creatinine 0.60 mg/dL (0.55-1.3) 08/11/18 05:11 Glucose 69 mg/dL (74-106) L 08/11/18 05:11 Phosphorus 3.5 mg/dL (2.5-4.9) 08/08/18 05:14 Magnesium 2.1 mg/dL (1.8-2.4) 08/08/18 05:14 Total Bilirubin 0.4 mg/dL (0.2-1.0) 08/11/18 05:11 AST 19 U/L (15-37) 08/11/18 05:11 ALT 43 U/L (12-78) 08/11/18 05:11 Alkaline Phosphatase 107 U/L (45-117) 08/11/18 05:11 Triglycerides 98 mg/dL (<150) 08/08/18 05:14 Cholesterol 130 mg/dL (<200) 08/08/18 05:14 HDL Cholesterol 31 mg/dL (40-60) L 08/08/18 05:14 Cholesterol/HDL Ratio 4.19 08/08/18 05:14 Lipase 167 U/L (73-393) 08/11/18 05:11 Home Medications: Ondansetron HCl [Zofran] 4 mg PO TID PRN #10 tablet 08/12/18 Pantoprazole [Protonix Tab] 40 mg PO DAILY #30 tab 08/12/18 New Medications: Ondansetron HCl [Zofran] 4 mg PO TID PRN #10 tablet PRN Reason: Nausea / Vomiting Pantoprazole [Protonix Tab] 40 mg PO DAILY #30 tab Patient Discharge Instructions: 1. Patient will need to establish care with a PCP. Information to local physicians will be provided. 2. Patient presented with epigastric pain, nausea and vomiting. She was found to have acute pancreatitis etiology unknown but likely viral. Her lipids were in normal range. CT scan was unremarkable except for fatty liver. Abdominal ultrasound and MRCP were both unremarkable. She is not a heavy drinker. Patient was seen by GI. No GI intervention was required. At discharge her symptoms resolved. At discharge she will be provided Protonix 40 mg daily and Zofran 4 mg one pill three times a day as needed for nausea. Recommendation is for the patient to follow up with GI to further address. 3. Patient may have underlying GERD. [facility] with Pro[facility] 40 mg one pill daily. Recommendation is for the patient to follow up with GI. 4. Patient has fatty liver per CT scan. Lifestyle education and information on fatty liver will be provided. 5. She may return to work after this weekend Diet: soft gi then advance to [facility] Activity: Ad gary Time spent managing pt's care (in minutes): 55
--- NOTE | 2018-08-13 19:38 | P.PN ---
Subjective Date of Service: 08/10/18 Primary Care Provider: None Chief Complaint: Abdominal pain/acute pancreatitis Subjective: Improving (Feels better with decreased lipase with more aggresive IVFs. Boyfriend at bedside.) Review of Systems 10-point ROS is otherwise unremarkable Gastrointestinal: Abdominal Pain (Improved) Physical Examination - Vital Signs Temperature: 97.4 F Blood Pressure: 152/65 Pulse: 54 Respirations: 17 Pulse Ox (%): 98 - Physical Exam General: Alert, In no apparent distress, Oriented x3, Cooperative, Cachectic HEENT: Atraumatic, Normocephalic, PERRLA, EOMI Neck: Supple Respiratory: Normal air movement Cardiovascular: Normal pulses Gastrointestinal: No rebound, No guarding, Tenderness (Improved) Neurological: Normal speech, Normal strength at 5/5 x4 extr - Studies Medications List Reviewed: Yes Assessment And Plan - Current Problems (Diagnosis) (1) Acute pancreatitis Status: Acute Comment: Improved with decreased lipase. (2) Intractable nausea and vomiting Status: Acute Comment: Resolved. (3) Epigastric abdominal pain Status: Acute Comment: Improved. - Plan REC: 1) continue IVFs 2) NPO, except ice chips / sips of water 3) MRCP
== END 2018-08-12 10:50 | disposition home or self-care (01) | DRG 439 ==
LOC: ER 17:28 → ERHOLD 20:41 → OBSVTOIN 20:41 → 2ND 22:19
PROVIDERS: ADMIT Hospitalist; ATTEND Family Medicine
DX: K85.80 Other acute pancreatitis without necrosis or infection (principal); Z68.41 Body mass index [BMI] 40.0-44.9, adult; K76.0 Fatty (change of) liver, not elsewhere classified; K21.9 Gastro-esophageal reflux disease without esophagitis; R11.2 Nausea with vomiting, unspecified; E66.01 Morbid (severe) obesity due to excess calories; D64.9 Anemia, unspecified
CPT/HCPCS: 36415; 74177; 74181; 76705; 80048; 80053; 80061; 80076; 81003; 81025; 83690; 83735; 84100; 84436; 84443; 85025; 86038; 96361; 96374; 99285; G0008; G0009; J1650; J2405; J7030; Q2035

== ENCOUNTER 2019-01-27 05:17 | Emergency (ER) | payer BC, SELFPAY ==
--- OUTSIDE RECORDS SUMMARY | 2019-01-27 05:20 | XMS REPORT | Continuity of Care Document ---
:2000 Author Organization Interface Problems Problem Status Onset Classification Date Comments Source Date Reported Discharge 09/12/2016 [place] Diagnosis: 6 Abdominal pain ABDOMINAL Active [facility] PAIN 6 [place] Discharge 05/01/2016 [facility] Diagnosis: 6 Pilonidal cyst with abscess CYST ON LOWER Active [facility] BACK 6 [place] Medications Medication Details Route Status Patient Ordering Order Source Instructions Provider Date tramadol 50 mg=1 Active [facility] hydrochloride 50 tab, PO, 016 [place] MG Oral Tablet BID, X 15 day, # 30 tab, 0 Refill(s) Metoclopramide 10 mg, 2 Inactive MH mL, Route: 016 [place] IVP, Drug form: INJ, ONCE, Dosing Weight 90.909, kg, Priority: STAT, Start date: 09/09/16 19:58:00 CDT, Stop date: 09/09/16 19:58:00 CDTNotes: (Same as: Reglan) Morphine 4 mg, 1 Inactive MH mL, Route: 016 [place] IVP, Drug form: INJ, ONCE, Dosing Weight 90.909, kg, Priority: STAT, Start date: 09/09/16 19:58:00 CDT, Stop date: 09/09/16 19:58:00 CDTNotes: (Same as:MORPhin e Sulfate) Saline Flush 0.9% 10 mL, Inactive MH Route: 016 [place] IVP, Drug Form: INJ, Dosing Weight 90.909, kg, PRN, PRN Line Flush, Start date: 09/09/16 19:58:00 CDT, Duration: 30 day, Stop date: 10/09/16 18:57:00 CSTNotes: (Same as: BD Posiflush) Sodium Chloride 1,000 mL, Inactive MH 0.154 MEQ/ML 2,000 016 [place] Injectable ml/hr, Solution Infuse Over: 30 minutes, Route: IV, 1,000, Drug form: INJ, ONCE, Priority: STAT, Dosing Weight 90.909 kg, Start date: 09/09/16 19:58:00 CDT, Duration: 1 doses or times, Stop date: 09/09/16 19:58:00 CDT ibuprofen 600 mg 600 mg=1 Active oral tablet tab, PO, 016 [place] Q8H, PRN SEVERE PAIN or FEVER, # 30 tab, 0 Refill(s) Acetaminophen 300 1 - 2 tab, Active MG / Codeine PO, Q4H, 016 [place] Phosphate 30 MG PRN Pain, Oral Tablet X 2 day, # [Tylenol with 20 tab, 0 Codeine #3] Refill(s) Tylenol 650 mg, 2 Inactive tab, 016 [place] Route: PO, Drug form: TAB, ONCE, Dosing Weight 95.455, kg, Priority: STAT, Start date: 04/28/16 21:22:00 CDT, Stop date: 04/28/16 21:22:00 CDTNotes: Do not exceed 4 gm/day. (Same as: Tylenol) Zofran ODT 4 mg, 1 Inactive tab, 016 [place] Route: PO, Drug form: TABDIS, ONCE, Dosing Weight 95.455, kg, Priority: STAT, Start date: 04/28/16 21:22:00 CDT, Stop date: 04/28/16 21:22:00 CDTNotes: (Same as: Zofran ODT) Morphine 4 mg, 1 Inactive mL, Route: 016 [place] IM, Drug form: INJ, ONCE, Dosing Weight 95.455, kg, Priority: STAT, Start date: 04/28/16 21:21:00 CDT, Stop date: 04/28/16 21:21:00 CDTNotes: (Same as:MORPhin e Sulfate) Allergies, Adverse Reactions, Alerts Substance Category Reaction Severity Reaction Status Date Comments Source type Reported Immunizations Immunization Date Given Site Status Last Updated Comments Source Results Order Name Results Value Reference Date Interpretation Comments Source Range CHEM PANEL eGFR 103 09/10 Result Comment: The eGFR is calculated using the CKD-EPI formula. In most young, healthy individuals the eGFR will be >90 mL/ min/1.73m2. The eGFR declines with age. An eGFR of 60-89 may be normal in mL/min/1.7 /2015 some populations, particularly the elderly, for whom the CKD-EPI formula has not been extensively validated. Use of the eGFR is not recommended in the following populations: [place] [id number] Individuals with unstable creatinine concentrations, including patients [...] 16 unit/L 0 - 37 09/10 TRANSAMINASE [place] CHEM PANEL Total 7.1 g/dL 6.4 - 8.4 09/10 [place] CHEM PANEL Bili Total 0.5 mg/dL 0.2 - 1.3 09/10 [place] CHEM PANEL Calcium Lvl 9.3 mg/dL 8.5 - 10.5 09/10 [place] CHEM PANEL CO2 26 meq/L 24 - 32 09/10 [place] CHEM PANEL Sodium Lvl 142 meq/L 135 - 145 09/10 [place] CHEM PANEL Chloride Lvl 109 meq/L 95 - 109 09/10 [place] CHEM PANEL Potassium 3.4 meq/L 3.5 - 5.1 09/10 Lvl [place] CHEM PANEL Creatinine 0.83 mg/dL 0.50 - 09/10 MH Lvl 1.40 [place] CHEM PANEL Glucose Lvl 107 mg/dL 70 - 99 09/10 [place] CHEM PANEL BUN 10 mg/dL 7 - 22 09/10 [place] CHEM PANEL Alk Phos 146 unit/L 39 - 136 09/10 [place] CHEM PANEL Albumin Lvl 3.8 g/dL 3.5 - 5.0 09/10 [place] CHEM PANEL ALANINE 31 unit/L 0 - 65 09/10 AMINOTRANSFE [place] RASE CHEM PANEL Globulin 3.3 g/dL 2.7 - 4.2 09/10 [place] CHEM PANEL A/G Ratio 1.2 0.7 - 1.6 09/10 [place] CHEM PANEL AGAP 10.4 meq/L 10.0 - 09/10 MH 20.0 [place] CHEM PANEL B/C Ratio 12 6 - 25 09/10 [place] CHEM PANEL Amylase Lvl 50 unit/L 25 - 115 09/10 [place] CHEM PANEL Lipase Lvl 93 unit/L 73 - 393 09/10 [place] HEMATOLOGY Segs-Bands # 8.6 K/CMM 1.5 - 8.1 09/10 [place] HEMATOLOGY Monocytes # 0.8 K/CMM 0.0 - 0.8 09/10 [place] HEMATOLOGY Basophils 0.6 % 0.0 - 1.0 09/10 [place] HEMATOLOGY Eosinophils 0.2 K/CMM 0.0 - 0.5 09/10 MH # /2015 [place] HEMATOLOGY Lymphocytes 2.5 K/CMM 1.0 - 5.5 09/10 [place] HEMATOLOGY Basophils # 0.1 K/CMM 0.0 - 0.2 09/10 [place] HEMATOLOGY Segs 70.8 % 45.0 - 09/10 MH 75.0 [place] HEMATOLOGY Eosinophils 1.3 % 0.0 - 4.0 09/10 [place] HEMATOLOGY Lymphocytes 20.3 % 20.0 - 09/10 MH 40.0 [place] HEMATOLOGY Monocytes 7.0 % 2.0 - 12.0 09/10 [place] HEMATOLOGY RBC X 10x6 4.33 M/CMM 4.20 - 09/10 MH 5.40 [place] HEMATOLOGY WBC X 10x3 12.2 K/CMM 3.7 - 10.4 09/10 [place] HEMATOLOGY MPV 8.2 fL 7.4 - 10.4 09/10 [place] HEMATOLOGY Hct 39.3 % 36.0 - 09/10 MH 48.0 [place] HEMATOLOGY MCH 30.8 pg 27.0 - 09/10 MH 31.0 [place] HEMATOLOGY Hgb 13.3 g/dL 12.0 - 09/10 MH 16.0 [place] HEMATOLOGY MCV 90.7 fL 80.0 - 09/10 MH 98.0 [place] HEMATOLOGY RDW 12.9 % 11.5 - 09/10 14.5 [place] HEMATOLOGY MCHC 34.0 g/dL 32.0 - 09/10 36.0 [place] HEMATOLOGY Platelet 268 K/CMM 133 - 450 09/10 [place] URINE AND UA Sq Epi Few /LPF Few /LPF 09/10 [place] URINE AND UA Leuk Est Negative Negative 09/10 [place] (09/09/16 8:32 PM) URINE AND UA RBC 21-50 /HPF 0 - 2 09/10 [place] URINE AND UA Bili Negative Negative 09/10 [place] *NA* (09/09/16 8:32 PM) URINE AND UA Blood Large Negative 09/10 [place] *ABN* (09/09/16 8:32 PM) URINE AND UA Nitrite Negative Negative 09/10 [place] (09/09/16 8:32 PM) URINE AND UA WBC 3-5 /HPF None Seen 09/10 STOOL /HPF [place] URINE AND UA Glucose Negative Negative 09/10 [place] (09/09/16 8:32 PM) URINE AND UA Ketones Negative Negative 09/10 [place] *NA* (09/09/16 8:32 PM) URINE AND UA Color Yellow Yellow 09/10 [place] *NA* (09/09/16 8:32 PM) URINE AND UA Spec Grav 1.020 <=1.030 09/10 [place] URINE AND UA Turbidity Slight Cloudy Clear 09/10 STOOL [place] (09/09/16 8:32 PM) URINE AND UA Protein Trace Negative 09/10 [place] *ABN* (09/09/16 8:32 PM) URINE AND UA pH 7.0 5.0 - 8.0 09/10 STOOL [place] URINE AND UA Bacteria Few /HPF None Seen 09/10 STOOL /HPF [place] URINE AND UA 1.0 EU/dL 0.1 - 1.0 09/10 STOOL Urobilinogen [place] URINE CHEM U Preg Negative Negative 09/10 [place] (09/09/16 8:32 PM) Abdomen RUQ Abdomen RUQ Patient Name: DAVONTE DIEZ 09/09 - [facility] US US /2015 - [place] : 2000; Age: 16 years y/o Female MR: [id number] Read by: Landon Sidhu MD Dictated Date/time: [...] chronic hepatitis could have this appearance. SL: JUDY Vital Signs Vital Sign Value Date Comments Source Temperature Oral (F) 97.6 F 09/10/2016 [facility] Respitory Rate 16 09/10/2016 [facility] Heart Rate 65 09/10/2016 [facility] Systolic (mm Hg) 122 09/10/2016 [facility] Diastolic (mm Hg) 84 09/10/2016 [facility] BMI Calculated 33.35 09/10/2016 [facility] Weight 90.909 09/10/2016 [facility] Height 165.1 cm 09/10/2016 [facility] Heart Rate 66 09/10/2016 [facility] Temperature Oral (F) 97.5 F 09/10/2016 [facility] Respitory Rate 18 09/10/2016 [facility] Systolic (mm Hg) 125 09/10/2016 [facility] Diastolic (mm Hg) 86 09/10/2016 [facility] Temperature Oral (F) 97.8 F 04/29/2016 [facility] Heart Rate 117 04/29/2016 [facility] Systolic (mm Hg) 107 04/29/2016 [facility] Diastolic (mm Hg) 60 04/29/2016 [facility] Temperature Oral (F) 99.2 F 04/29/2016 [facility] Heart Rate 124 04/29/2016 [facility] Height 165.1 cm 04/29/2016 [facility] Weight 95.455 04/29/2016 [facility] Respitory Rate 20 04/29/2016 [facility] Heart Rate 145 04/29/2016 [facility] BMI Calculated 35.02 04/29/2016 [facility] Temperature Oral (F) 99.2 F 04/29/2016 [facility] Systolic (mm Hg) 122 04/29/2016 [facility] Diastolic (mm Hg) 73 04/29/2016 [facility] Encounters Location Location Encounter Encounter Reason Attending ADM DC Status Source Details Type Number For Provider Date Date Visit [facility] [id number] Paulina 04/29 04/29 [place] [facility] /2015 [facility] Emergency [id number] Mae 09/10 09/10 [place] Guerrier /2015 [facility] Procedures Procedure Code Date Perfomer Comments Source
[2019-01-27 06:11] LABS: Urine Bacteria 20-50 /HPF (<20); Urine RBC <5 /HPF (NONE SEEN)
[2019-01-27 06:11] LABS: Urine Blood TRACE (NEG); Urine Glucose NEGATIVE (NEG); Urine Protein NEGATIVE (NEG); Urine Specific Gravity >1.030 (1.005-1.030); Urine pH 5.5 (5.0-7.0)
[2019-01-27 06:12] LABS: Urine Culture Reflex Order NOT NEEDED; Urine Mucus HEAVY /HPF (NONE SEEN)
[2019-01-27] MEDS ORDERED: MEPERIDINE HCL 25 MG/0.5 ML ONE (06:55)
[2019-01-27] MEDS ORDERED: ONDANSETRON 4 MG/2 ML VIAL ONE (06:55)
[2019-01-27 07:09] LABS: Absolute Lymphocytes (CBC) 1.9 K/uL (0.7-4.9); Absolute Monocytes 0.7 K/uL (0.1-1.3); Absolute Neutrophil 5.4 K/uL (1.8-8.0); Basophils % 0.5 % (0-1.3); Eosinophils % 2.6 % (0-4.4); Hematocrit 36.9 % (36.0-45.0); Lymphocytes % 23.1 % (15.3-44.8); MPV 7.8 fL (7.6-11.3); Monocytes % 8.2 % (3.3-12.3); RBC Red Blood Cell Count 4.07 M/uL (3.86-4.86)
[2019-01-27 07:25] LABS: ALT/SGPT 42 U/L (12-78); AST/SGOT 16 U/L (15-37); Albumin 3.4 g/dL (3.4-5.0); Alkaline Phosphatase 136 U/L (45-117); BUN Blood Urea Nitrogen 11 mg/dL (7-18); Bicarbonate 26 mmol/L (21-32); Bilirubin Direct < 0.1 mg/dL (0-0.2); Bilirubin Total 0.2 mg/dL (0.2-1.0); Glucose Level 119 mg/dL (74-106); Lipase 405 U/L (73-393); Potassium 3.9 mmol/L (3.5-5.1); Protein, Total 6.9 g/dL (6.4-8.2); Sodium Level 141 mmol/L (136-145)
--- NOTE | 2019-01-27 08:15 | RAD REPORT ---
EXAM DESCRIPTION: CTAbdomen Pelvis W Contrast - 01/27/2019 8:03 am CLINICAL HISTORY: Abdominal pain. iv only;Abd pain COMPARISON: Abdomen Pelvis W Contrast dated 08/07/2018 TECHNIQUE: Biphasic CT imaging of the abdomen and pelvis was performed with 100 ml non-ionic IV cont rast. All CT scans are performed using dose optimization technique as appropriate and may include automated exposure control or mA/KV adjustment according to patient size. FINDINGS: The lung bases are clear. The liver demonstrates diffuse fatty infiltration. The spleen, adrenal glands and kidneys are within normal limits. Subtle edematous changes seen in the pancreatic and neck region. No bowel obstruction, free air, free fluid or abscess. The appendix is normal. No evidence of signi ficant lymphadenopathy. No suspicious bony findings. IMPRESSION: Mild/early pancreatitis is possible in the pancreatic head/ neck region. Fatty liver.
--- NOTE | 2019-01-27 08:21 | RAD REPORT ---
EXAM DESCRIPTION: US - Abdomen Exam Limited - 01/27/2019 6:59 am CLINICAL HISTORY: r/o GB;Abd pain COMPARISON: Abdomen Exam Limited dated 08/07/2018 FINDINGS: The gallbladder demonstrates no gallstones. No pericholecystic fluid or gallbladder wall t hickening. The common bile duct is normal measuring 4 mm. The liver demonstrates no findings of intrahepatic biliary dilatation. IMPRESSION: Unremarkable examination.
--- NOTE | 2019-01-27 08:36 | ER ---
Nurse's Notes [facility] Name: Marylin Kendrick Age: 18 yrs Sex: Female : 2000 Arrival Date: 01/27/2019 Time: 05:18 Bed 13 Private MD: Diagnosis: Idiopathic acute pancreatitis Presentation: 01/27 05:33 Presenting complaint: Patient states: epigastric pain that radiates to right lower abd ak1 and right back since Saturday. pt denies vomiting, denies diarrhea. pt c/o nausea. Transition of care: patient was not received from another setting of care. Onset of symptoms was January 23, 2019. Risk Assessment: Do you want to hurt yourself or someone else? Patient reports no desire to harm self or others. Initial Sepsis Screen: Does the patient meet any 2 criteria? No. Patient's initial sepsis screen is negative. Does the patient have a suspected source of infection? No. Patient's initial sepsis screen is negative. Care prior to arrival: None. 05:33 Method Of Arrival: Ambulatory ak1 05:33 Acuity: JOSE A 3 ak1 Triage Assessment: 05:34 General: Appears in no apparent distress. Behavior is calm, cooperative. Pain: ak1 Complains of pain in epigastric area and right lower quadrant. EENT: No signs and/or symptoms were reported regarding the EENT system. Neuro: No deficits noted. Cardiovascular: No deficits noted. Respiratory: No deficits noted. GI: Reports lower abdominal pain, epigastric pain, nausea, Patient currently denies diarrhea, vomiting. : No signs and/or symptoms were reported regarding the genitourinary system. Derm: No signs and/or symptoms reported regarding the dermatologic system. Musculoskeletal: Range of motion: intact in all extremities, pt c/o right back pain. 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 - Social history:: Smoking status: Patient/guardian denies using tobacco. - Ebola Screening: : No symptoms or risks identified at this time. Screenin:35 Abuse screen: Denies threats or abuse. Denies injuries from another. Nutritional ak1 screening: No deficits noted. Tuberculosis screening: No symptoms or risk factors identified. Fall Risk None identified. Assessment: 05:40 General: Appears in no apparent distress. uncomfortable, Behavior is calm, cooperative, jb4 appropriate for age. Pain: Complains of pain in abdomen Pain radiates to back Pain currently is 10 out of 10 on a pain scale. Quality of pain is described as stabbing. Neuro: Level of Consciousness is awake, alert, obeys commands, Oriented to person, place, time, situation. Cardiovascular: Patient's skin is warm and dry. Respiratory: Airway is patent Respiratory effort is even, unlabored, Respiratory pattern is regular, symmetrical. GI: Abdomen is non-distended, obese, Bowel sounds present X 4 quads. Abd is soft X 4 quads Abd is non tender in left upper quadrant, right lower quadrant and left lower quadrant Abdomen is tender to palpation in epigastric area, umbilical area and right upper quadrant Reports nausea. : No signs and/or symptoms were reported regarding the genitourinary system. EENT: No signs and/or symptoms were reported regarding the EENT system. Derm: Skin is intact, Skin is dry, Skin is normal, Skin temperature is warm. Musculoskeletal: Circulation, motion, and sensation intact. 06:40 Reassessment: Patient appears in no apparent distress at this time. No changes from jb4 previously documented assessment. Patient and/or family updated on plan of care and expected duration. Pain level reassessed. Patient is alert, oriented x 3, equal unlabored respirations, skin warm/dry/pink. 07:35 Reassessment: Patient appears in no apparent distress at this time. Patient and/or hb family updated on plan of care and expected duration. Pain level reassessed. Patient is alert, oriented x 3, equal unlabored respirations, skin warm/dry/pink. Vital Signs: 05:32 BP 120 / 79; Pulse 86; Resp 16; Temp 97.6(TE); Pulse Ox 100% on R/A; Weight 99.79 kg ak1 (R); Height 5 ft. 5 in. (165.10 cm) (R); Pain 10/10; 06:00 BP 115 / 79; Pulse 80; Resp 16; Pulse Ox 99% on R/A; jb4 07:20 BP 112 / 84; Pulse 78; Resp 16; Pulse Ox 100% on R/A; hb 05:32 Body Mass Index 36.61 (99.79 kg, 165.10 cm) ak1 ED Course: 05:18 Patient arrived in ED. es 05:32 Arm band placed on Patient placed in an exam room, on a stretcher, on pulse oximetry, ak1 Patient notified of wait time. 05:34 Triage completed. ak1 05:36 Patient has correct armband on for positive identification. Bed in low position. Call ak1 light in reach. Side rails up X 1. Adult w/ patient. Pulse ox on. NIBP on. 05:56 Colton Osorio, NIXON is Primary Nurse. jb4 06:02 Ganga Mitchell PA is PHCP. jr8 06:02 Willy Coombs MD is Attending Physician. jr8 06:30 Missed attempt(s): 22 gauge in right forearm. antecubital area. Bleeding controlled, ak1 band aid applied, catheter tip intact. 06:46 Inserted saline lock: 20 gauge in left antecubital area, using aseptic technique. ak1 ,using aseptic technique. placed by Tamika Orellana RN. 06:58 US Abdomen Limited In Process Unspecified. EDMS 08:03 CT Abd/Pelvis - W/Contrast In Process Unspecified. EDMS 08:35 Moses Rogers MD is Referral Physician. jr8 09:10 No provider procedures requiring assistance completed. IV discontinued, intact, hb bleeding controlled, No redness/swelling at site. Pressure dressing applied. Administered Medications: 06:50 Drug: Zofran 4 mg Route: IVP; Site: left antecubital; jb4 06:54 Drug: Demerol 25 mg Route: IVP; Site: left antecubital; jb4 Outcome: 08:35 Discharge ordered by . jr8 09:10 Discharged to home ambulatory, with family. hb 09:10 Condition: stable 09:10 Discharge instructions given to patient, family, Instructed on discharge instructions, follow up and referral plans. medication usage, Demonstrated understanding of instructions, follow-up care, medications. 09:12 Patient left the ED. hb Signatures: Dispatcher [employer] EDMS Lucie Bahena Ganga Mitchell PA PA jr8 Emilie Huggins RN RN ak1 Damaris David RN RN hb Colton Osorio, RN RN jb4
--- NOTE | 2019-01-27 08:36 | EDPHYS ---
Physician Documentation [facility] Name: Marylin Kendrick Age: 18 yrs Sex: Female : 2000 Arrival Date: 01/27/2019 Time: 05:18 Bed 13 Private MD: ED Physician Willy Coombs HPI: 01/27 07:03 This 18 yrs old Female presents to ER via Ambulatory with complaints of Back jr8 Pain, Abdominal Pain. 07:03 The patient presents with abdominal pain in the epigastric area, in the right upper jr8 quadrant. Onset: The symptoms/episode began/occurred acutely, last night. The symptoms radiate to right back. Associated signs and symptoms: Pertinent positives: nausea. The symptoms are described as stabbing. Modifying factors: The symptoms are alleviated by nothing, the symptoms are aggravated by food. Severity of pain: At its worst the pain was moderate in the emergency department the pain has improved mildly. The patient has not experienced similar symptoms in the past. The patient has not recently seen a physician. history of pancreatitis in past. Unknown cause. Was admitted for a week. Stated that she had some Chick shanta and shortly after had RUQ abdominal pain radiating to back with nausea. Has continued through to this morning . 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 - Social history:: Smoking status: Patient/guardian denies using tobacco. - Ebola Screening: : No symptoms or risks identified at this time. ROS: 07:03 Eyes: Negative for injury, pain, redness, and discharge, ENT: Negative for injury, jr8 pain, and discharge, Neck: Negative for injury, pain, and swelling, Cardiovascular: Negative for chest pain, palpitations, and edema, Respiratory: Negative for shortness of breath, cough, wheezing, and pleuritic chest pain, Back: Negative for injury and pain, MS/Extremity: Negative for injury and deformity, Skin: Negative for injury, rash, and discoloration, Neuro: Negative for headache, weakness, numbness, tingling, and seizure. 07:03 Abdomen/GI: Positive for abdominal pain, nausea, Negative for vomiting, diarrhea, constipation, abdominal cramps, abdominal distension, anorexia, dysphagia, hematemesis, black/tarry stool, rectal pain, rectal bleeding, bowel incontinence, flatulence. Exam: 07:03 Eyes: Pupils equal round and reactive to light, extra-ocular motions intact. Lids and jr8 lashes normal. Conjunctiva and sclera are non-icteric and not injected. Cornea within normal limits. Periorbital areas with no swelling, redness, or edema. ENT: Nares patent. No nasal discharge, no septal abnormalities noted. Tympanic membranes are normal and external auditory canals are clear. Oropharynx with no redness, swelling, or masses, exudates, or evidence of obstruction, uvula midline. Mucous membranes moist. Neck: Trachea midline, no thyromegaly or masses palpated, and no cervical lymphadenopathy. Supple, full range of motion without nuchal rigidity, or vertebral point tenderness. No Meningismus. Cardiovascular: Regular rate and rhythm with a normal S1 and S2. No gallops, murmurs, or rubs. Normal PMI, no JVD. No pulse deficits. Respiratory: Lungs have equal breath sounds bilaterally, clear to auscultation and percussion. No rales, rhonchi or wheezes noted. No increased work of breathing, no retractions or nasal flaring. Back: No spinal tenderness. No costovertebral tenderness. Full range of motion. Skin: Warm, dry with normal turgor. Normal color with no rashes, no lesions, and no evidence of cellulitis. MS/ Extremity: Pulses equal, no cyanosis. Neurovascular intact. Full, normal range of motion. Neuro: Awake and alert, GCS 15, oriented to person, place, time, and situation. Cranial nerves II-XII grossly intact. Motor strength 5/5 in all extremities. Sensory grossly intact. Cerebellar exam normal. Normal gait. 07:03 Abdomen/GI: Inspection: obese Bowel sounds: active, all quadrants, Palpation: soft, in all quadrants, mild abdominal tenderness, in the epigastric area, moderate abdominal tenderness, in the right upper quadrant, mass, is not appreciated, rebound tenderness, is not appreciated, voluntary guarding, is not appreciated, involuntary guarding, is not appreciated, no appreciated organomegaly, Indicators: McBurney's point is not tender, Carballo's sign is positive, Rovsing's sign is negative, Obturator sign is negative, Psoas sign is negative, Liver: no appreciated palpable abnormalities. Vital Signs: 05:32 BP 120 / 79; Pulse 86; Resp 16; Temp 97.6(TE); Pulse Ox 100% on R/A; Weight 99.79 kg ak1 (R); Height 5 ft. 5 in. (165.10 cm) (R); Pain 10/10; 06:00 BP 115 / 79; Pulse 80; Resp 16; Pulse Ox 99% on R/A; jb4 07:20 BP 112 / 84; Pulse 78; Resp 16; Pulse Ox 100% on R/A; hb 05:32 Body Mass Index 36.61 (99.79 kg, 165.10 cm) ak1 MDM: 06:02 Patient medically screened. jr8 08:30 Data reviewed: vital signs, nurses notes, lab test result(s), radiologic studies, CT jr8 scan, ultrasound. Data interpreted: Pulse oximetry: on room air is 100 %. Interpretation: normal. 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 Response to treatment: the patient's symptoms have mildly improved after treatment. 08:32 ED course: Patient with mild early pancreatitis both seen on labs and imaging. Patient jr8 with normal vital signs. Pain controlled at this point. No active nausea or vomiting. Will send home to try out patient therapy first with clear liquids for next 48 hours and pain medicine. Patient knows to come back if symptoms worsen . 01/27 05:47 Order name: Urine Microscopic Only; Complete Time: 06:15 01/27 05:59 Order name: Urine Dipstick--Ancillary (enter results); Complete Time: 06:15 ar5 01/27 05:59 Order name: Urine --Ancillary (enter results); Complete Time: 06:15 ar 01/27 06:15 Order name: Basic Metabolic Panel [facility] 01/27 06:15 Order name: CBC with Diff; Complete Time: 07:16 jr8 01/27 06:15 Order name: Creatinine for Radiology; Complete Time: 07:29 [facility] 01/27 06:15 Order name: Hepatic Function; Complete Time: 07:29 [facility] 01/27 06:15 Order name: Lipase; Complete Time: 07:29 [facility] 01/27 06:15 Order name: Basic Metabolic Panel; Complete Time: 07:29 [facility] 01/27 06:16 Order name: US Abdomen Limited; Complete Time: 08:22 [facility] 01/27 07:30 Order name: CT Abd/Pelvis - W/Contrast; Complete Time: 08:22 [facility] 01/27 05:47 Order name: Urine Test (obtain specimen); Complete Time: 05:56 01/27 05:47 Order name: Urine Dipstick-Ancillary (obtain specimen); Complete Time: 05:56 01/27 06:15 Order name: IV Saline Lock; Complete Time: 07:05 [facility] 01/27 06:15 Order name: Labs collected and sent; Complete Time: 06:31 [facility] Administered Medications: 06:50 Drug: Zofran 4 mg Route: IVP; Site: left antecubital; jb4 06:54 Drug: Demerol 25 mg Route: IVP; Site: left antecubital; jb4 Disposition: 01/27/19 08:35 Discharged to Home. Impression: Idiopathic acute pancreatitis. - Condition is Stable. - Discharge Instructions: Acute Pancreatitis. - Prescriptions for Tylenol- Codeine #4 300-60 mg Oral Tablet - take 1 tablet by ORAL route every 6 hours As needed; 16 tablet. Zofran 4 mg Oral Tablet - take 1 tablet by ORAL route every 12 hours As needed; 20 tablet. - Work release form, Medication Reconciliation Form, Thank You Letter, Antibiotic Education, Prescription Opioid Use form. - Follow up: Moses Rogers MD; When: 1 - 2 days; Reason: Recheck today's complaints, Continuance of care, Re-evaluation by your physician. - Problem is new. - Symptoms have improved. Signatures: Dispatcher [employer] EDIL Ganga Mitchell PA PA jr8 Emilie Huggins RN RN ak1 Damaris David RN RN Colton Bowens RN RN jb4 Willy Coombs MD MD Corrections: (The following items were deleted from the chart) 09:12 08:35 01/27/2019 08:35 Discharged to Home. Impression: Idiopathic acute pancreatitis. hb Condition is Stable. Forms are Medication Reconciliation Form, Thank You Letter, Antibiotic Education, Prescription Opioid Use. Follow up: Moses Rogers; When: 1 - 2 days; Reason: Recheck today's complaints, Continuance of care, Re-evaluation by your physician. Problem is new. Symptoms have improved. jr8
[2019-01-27] MEDS ORDERED: HYDROMORPHONE HCL 0.5 MG/0.5 ML INJ ONE (09:08)
== END 2019-01-27 09:12 | disposition home or self-care (01) ==
LOC: ER 05:17
DX: K85.00 Idiopathic acute pancreatitis without necrosis or infection (principal)
CPT/HCPCS: 36415; 74177; 76705; 80048; 80076; 81003; 81015; 81025; 83690; 85025; 96374; 96375; 99284; J1170; J2175; J2405; Q9967

== ENCOUNTER 2021-03-09 00:58 | Emergency (ER) | payer BC, SELFPAY ==
--- OUTSIDE RECORDS SUMMARY | 2021-03-09 01:03 | XMS REPORT | Continuity of Care Document ---
:2000 Author Organization [facility] t Address [address] [place] [address] Care Team Providers Name Role Phone Asked, No Pcp Primary Care Physician Unavailable Sunil KAM PThom Attending Clinician Nelly Guerrier Attending Clinician Alfa Attending Clinician Problems Condition Condition Condition Status Onset Resolution Last Treating Co mments Source Name Details Category Date Date Treatment Clinician Date ABDOMINAL Diagnosis Active 2015-112016-10-01 Memoria PAIN 0-30 10:33:00 l 00:00: [place] ABDOMINAL 00 PAIN Active 09/09/2016 [facility] [place] CYST ON Diagnosis Active 2016-05-03 Me moria LOWER BACK 6-18 13:26:00 l CYST ON 00:00: [place] LOWER BACK 00 Active 04/28/2016 Arti Conteh History of Past Illness Condition Condition Condition Status Onset Resolution Last Treating Co mments Source Name Details Category Date Date Treatment Clinician Date Discharge Problem 2015-112016-09-12 2016-09-12 Memoria Diagnosis: 0-30 00:34:56 00:34:56 l Abdominal 05:00: [place] pain Discharge 00 Diagnosis: Abdominal pain 09/09/2016 09/12/2016 [place] Discharge Problem 2016-05-01 2016-05-01 Memoria Diagnosis: 6- 02:46:05 02:46:05 l Pilonidal 05:00: [place] cyst with Discharge 00 abscess Diagnosis: Pilonidal cyst with abscess 04/28/2016 05/01/2016 Traci Allergies, Adverse Reactions, Alerts This patient has no known allergies or adverse reactions. Social History Social Habit Start Date Stop Date Quantity Comments Source Sex Assigned At [birth year] [facility] 00:00:00 00:00:00 Smoking Status Start Date Stop Date Source Social History [facility] Medications Ordered Filled Start Stop Current Ordering Indication Dosage Frequency Signature Comments Components Source Medication Medication Date Date Medication? Clinician (SIG) Name Name tramadol 2015-11 Yes 50 mg = 1 Darrin juan hydrochlori 0-31 tab, PO, l de 50 MG 02:53: BID, X 15 Herm parveen Oral Tablet 00 day, # 30 tab, 0 Refill(s) Metoclopram 2015-11 No Notes: Darrin juan sammy 0-31 (Same as: l 00:58: Reglan) [place] 00 Morphine 2015-11 No Notes: Memoria 0-31 (Same l 00:58: as:MORPhin [place] 00 e Sulfate) Saline 2015-11 No Notes: Memoria Flush 0.9% 0-31 (Same as: l 00:58: BD [place] 00 Posiflush) Sodium 2015-11 No 1,000 mL, Memori a Chloride 0-31 2,000 l 0.154 00:58: ml/hr, [place] MEQ/ML 00 Infuse Injectable Over: 30 Solution minutes, Route: IV, 1,000, Drug form: INJ, ONCE, Priority: STAT, Dosing Weight 90.909 kg, Start date: 09/09/16 19:58:00 CDT, Duration: 1 doses or times, Stop date: 09/09/16 19:58:00 CDT ibuprofen Yes 600 mg = 1 Me moria 600 mg oral 6-19 tab, PO, l tablet 03:32: Q8H, PRN [place] 00 SEVERE PAIN or FEVER, # 30 tab, 0 Refill(s) Acetaminoph Yes 1 - 2 tab, Memoria en 300 MG / 6-19 PO, Q4H, l Codeine 03:32: PRN Pain, [place] nn Phosphate 00 X 2 day, # 30 MG Oral 20 tab, 0 Tablet Refill(s) [Tylenol with Codeine #3] Tylenol No Notes: Do Memor ia 6-19 not exceed l 02:22: 4 gm/day. [place] 00 (Same as: Tylenol) Zofran ODT No Notes: Memor ia 6-19 (Same as: l 02:22: Zofran [place] 00 ODT) Morphine No Notes: Memoria 6- (Same l 02:21: as:MORPhin [place] 00 e Sulfate) Immunizations Ordered Immunization Filled Immunization Date Status Commen ts Source Name Name PFIZER COVID-19 MRNA 2021-01-31 Completed [place] [facility] 00:00:00 [facility] PFIZER COVID-19 MRNA 2021-01-10 Completed [place]ACC[place] 00:00:00 [facility] Vital Signs Vital Name Observation Time Observation Value Comments Source Diastolic (mm Hg) 2016-09-10 03:39:00 Mem orial [place] Temperature Oral (F) 2016-09-10 03:39:00 97.6 F [facility] [place] Respitory Rate 2016-09-10 03:39:00 Memori al [place] Heart Rate 2016-09-10 03:39:00 [facility] [place] Systolic (mm Hg) 2016-09-10 03:39:00 Darrin rial [place] BMI Calculated 2016-09-10 00:55:00 Memori al [place] Weight 2016-09-10 00:55:00 [facility] [place] Height 2016-09-10 00:55:00 165.1 cm [facility] [place] Heart Rate 2016-09-10 00:55:00 [facility] [place] Temperature Oral (F) 2016-09-10 00:55:00 97.5 F [facility] [place] Respitory Rate 2016-09-10 00:55:00 Memori al [place] Systolic (mm Hg) 2016-09-10 00:55:00 Darrin rial [place] Diastolic (mm Hg) 2016-09-10 00:55:00 Mem orial [place] Temperature Oral (F) 2016-04-29 03:38:00 97.8 F [facility] [place] Heart Rate 2016-04-29 03:38:00 [facility] [place] Systolic (mm Hg) 2016-04-29 03:38:00 Darrin rial [place] Diastolic (mm Hg) 2016-04-29 03:38:00 Mem orial [place] Temperature Oral (F) 2016-04-29 01:52:00 99.2 F [facility] [place] Heart Rate 2016-04-29 01:52:00 [facility] [place] BMI Calculated 2016-04-29 01:34:00 Memori al [place] Temperature Oral (F) 2016-04-29 01:34:00 99.2 F [facility] [place] Systolic (mm Hg) 2016-04-29 01:34:00 Darrin moran [place] Diastolic (mm Hg) 2016-04-29 01:34:00 Mem orial [place] Height 2016-04-29 01:34:00 165.1 cm [facility] [place] Weight 2016-04-29 01:34:00 [facility] [place] Respitory Rate 2016-04-29 01:34:00 Memori al [place] Heart Rate 2016-04-29 01:34:00 [facility] [place] Procedures This patient has no known procedures. Plan of Care Planned Activity Planned Date Details Comments Source Future Scheduled 2021-06-11 INFLUENZA VACCINE [place] [facility] 00:00:00 [code = INFLUENZA VACCINE] Future Scheduled 2019 Screening for [place] [facility] 00:00:00 malignant neoplasm of cervix (procedure) [code = 465938914] Future Scheduled 2016 Hepatitis C [place] [facility] 00:00:00 screening (procedure) [code = 913852364] Future Scheduled 2014 CHLAMYDIA SCREENING [place] [facility] Test 00:00:00 [code = CHLAMYDIA SCREENING] Encounters Start End Encounter Admission Attending Care Care Encounter Source Date/Time Date/Time Type Type Clinicians Facility Department ID 2021-01-31 2021-01-31 Outpatient [facility] [id number] [place] 00:00:00 00:00:[address] MATY [address] 2021-01-10 2021-01-10 Outpatient [facility] [id number] [place] 00:00:00 00:00:[address] 2019-05-07 2019-05-07 Emergency E [facility] 7500 [facility] 00:10:00 00:10:00 2016-09-09 2016-09-[address] [id number] 19:51:00 22:43:00 Mea 01 Nelly Bullard 2016-04-28 2016-04-[address] [id number] 20:33:00 22:53:00 Paulina 00 Results Test Description Test Time Test Comments Results Result Comments Source CHEM PANEL 2016-09-10 103 [facility] [place] [facility] 01:32:00 CHEM PANEL 2016-09-10 16 [facility] [place] 01:32:00 CHEM PANEL 2016-09-10 7.1 [facility] [place] 01:32:00 CHEM PANEL 2016-09-10 0.5 [facility] [place] 01:32:00 CHEM PANEL 2016-09-10 9.3 [facility] [place] 01:32:00 CHEM PANEL 2016-09-10 26 [facility] [place] [facility] 01:32:00 CHEM PANEL 2016-09-10 142 [facility] [place] 01:32:00 CHEM PANEL 2016-09-10 109 [facility] [place] 01:32:00 CHEM PANEL 2016-09-10 3.4 [facility] [place] 01:32:00 CHEM PANEL 2016-09-10 0.83 [facility] [place] [facility] 01:32:00 CHEM PANEL 2016-09-10 107 [facility] [place] 01:32:00 CHEM PANEL 2016-09-10 10 [facility] [place] [facility] 01:32:00 CHEM PANEL 2016-09-10 146 [facility] [place] 01:32:00 CHEM PANEL 2016-09-10 3.8 [facility] [place] 01:32:00 CHEM PANEL 2016-09-10 31 [facility] [place] 01:32:00 CHEM PANEL 2016-09-10 3.3 [facility] [place] 01:32:00 CHEM PANEL 2016-09-10 1.2 [facility] [place] 01:32:00 CHEM PANEL 2016-09-10 10.4 [facility] [place] 01:32:00 CHEM PANEL 2016-09-10 12 [facility] [place] 01:32:00 CHEM PANEL 2016-09-10 50 [facility] [place] 01:32:00 CHEM PANEL 2016-09-10 93 [facility] [place] 01:32:00 HEMATOLOGY 2016-09-10 8.6 [facility] [place] 01:32:00 HEMATOLOGY 2016-09-10 0.8 [facility] [place] 01:32:00 HEMATOLOGY 2016-09-10 0.6 [facility] [place] 01:32:00 HEMATOLOGY 2016-09-10 0.2 [facility] [place] 01:32:00 HEMATOLOGY 2016-09-10 2.5 [facility] [place] 01:32:00 HEMATOLOGY 2016-09-10 0.1 [facility] [place] 01:32:00 HEMATOLOGY 2016-09-10 70.8 [facility] [place] 01:32:00 HEMATOLOGY 2016-09-10 1.3 [facility] [place] 01:32:00 HEMATOLOGY 2016-09-10 20.3 [facility] [place] 01:32:00 HEMATOLOGY 2016-09-10 7.0 [facility] [place] 01:32:00 HEMATOLOGY 2016-09-10 4.33 [facility] [place] 01:32:00 HEMATOLOGY 2016-09-10 12.2 [facility] [place] 01:32:00 HEMATOLOGY 2016-09-10 8.2 [facility] [place] 01:32:00 HEMATOLOGY 2016-09-10 39.3 [facility] [place] 01:32:00 HEMATOLOGY 2016-09-10 01:32:00 Test Item Value Reference Range Interpretation Comme nts MCH (test code = MCH) 30.8 pg 27.0-31.0 [facility] [id number] 01:32:0013.3[facility] 2016-09-10 01:32:0090.7[facility] [id number] 01:32:0012.9[facility] [id number] 01:32:0034.0[facility] [id number] 01:32:04054Byjmytva HermannURINE AND [id number] 01:32:00Negative (09/09/16 8:32 PM)[facility] [id number] 01:32:00Negative *NA*(09/09/16 8:32 PM)[facility] [id number] 01:32:00Large *ABN*(09/09/16 8:32 PM)[facility] [id number] 01:32:00Negative (09/09/16 8:32 PM)[facility] [id number] 01:32:00Negative (09/09/16 8:32 PM)[facility] [id number] 01:32:00Negative *NA*(09/09/16 8:32 PM)[facility] [id number] 01:32:00Yellow *NA*(09/09/16 8:32 PM)[facility] [id number] 01:32:00 Test Item Value Reference Range Interpretation Comments UA Spec Grav (test code = UA Spec 1.020 1 Grav) [facility] [id number] 01:32:00Slight Cloudy (09/09/16 8:32 PM)[facility] [id number] 01:32:00Trace *ABN*(09/09/16 8:32 PM)[facility] [id number] 01:32:00 Test Item Value Reference Range Interpretation Comments UA pH (test code = UA pH) 7.0 1 5.0-8.0 [facility] [id number] 01:32:001.0[facility] CHEM 2016-09-10 01:32:00Negative (09/09/16 8:32 PM)[facility] [place]
--- NOTE | 2021-03-09 01:24 | EDPHYS ---
Physician Documentation [facility] Name: Marylin Kendrick Age: 21 yrs Sex: Female : 2000 Arrival Date: 03/09/2021 Time: : Bed Waiting Private MD: None, None ED Physician Zachariah Cifuentes HPI: 03/09 01:20 This 21 yrs old Female presents to ER via Ambulatory with complaints of Ear jr8 Pain. 01:20 The patient presents with pain, swelling, tenderness. The complaints affect the left jr8 ear. Onset: The symptoms/episode began/occurred gradually. Modifying factors: The symptoms are alleviated by nothing, the symptoms are aggravated by pulling on ears, touching. Associated signs and symptoms: The patient has no apparent associated signs or symptoms. Severity of symptoms: At their worst the symptoms were moderate in the emergency department the symptoms are unchanged. The patient has not experienced similar symptoms in the past. The patient has been recently seen by a physician:. Recently seen by clinic for ear pain and put on Amoxil and neomycin drops along with T3. Stated that the pain is persisting and feels more swollen . 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 - Social history:: Smoking status: Patient denies any tobacco usage or history of. ROS: 01:20 Eyes: Negative for injury, pain, redness, and discharge, Neck: Negative for injury, jr8 pain, and swelling, Cardiovascular: Negative for chest pain, palpitations, and edema, Respiratory: Negative for shortness of breath, cough, wheezing, and pleuritic chest pain, Abdomen/GI: Negative for abdominal pain, nausea, vomiting, diarrhea, and constipation, Back: Negative for injury and pain, MS/Extremity: Negative for injury and deformity, Skin: Negative for injury, rash, and discoloration, Neuro: Negative for headache, weakness, numbness, tingling, and seizure. 01:20 ENT: Positive for drainage from ear(s), ear pain. Exam: 01:20 Head/Face: Normocephalic, atraumatic. Eyes: Pupils equal round and reactive to light, jr8 extra-ocular motions intact. Lids and lashes normal. Conjunctiva and sclera are non-icteric and not injected. Cornea within normal limits. Periorbital areas with no swelling, redness, or edema. Neck: Trachea midline, no thyromegaly or masses palpated. Anterior cervical lymphadenopathy present left side. Supple, full range of motion without nuchal rigidity, or vertebral point tenderness. No Meningismus. Cardiovascular: Regular rate and rhythm with a normal S1 and S2. No gallops, murmurs, or rubs. Normal PMI, no JVD. No pulse deficits. Respiratory: Lungs have equal breath sounds bilaterally, clear to auscultation and percussion. No rales, rhonchi or wheezes noted. No increased work of breathing, no retractions or nasal flaring. Skin: Warm, dry with normal turgor. Normal color with no rashes, no lesions, and no evidence of cellulitis. MS/ Extremity: Pulses equal, no cyanosis. Neurovascular intact. Full, normal range of motion. Neuro: Awake and alert, GCS 15, oriented to person, place, time, and situation. Cranial nerves II-XII grossly intact. Motor strength 5/5 in all extremities. Sensory grossly intact. Cerebellar exam normal. Normal gait. 01:20 ENT: External ear(s): are unremarkable, Ear canal(s): erythema, that is moderate, of the left canal, purulent discharge, that is minimal, in the left canal, swelling, that is moderate, of the left canal, TM's: are normal, Examination of the other ear shows no obvious abnormality, Nose: is normal, Mouth: is normal, Posterior pharynx: is normal. Vital Signs: 01:15 BP 124 / 69; Pulse 93; Resp 18 S; Temp 97.6(O); Pulse Ox 99% on R/A; Weight 110.22 kg bb (R); Height 5 ft. 5 in. (165.10 cm) (R); Pain 9/10; 01:15 Body Mass Index 40.44 (110.22 kg, 165.10 cm) bb MDM: 01:20 Data reviewed: vital signs, nurses notes, and as a result, I will discharge patient. [facility] Data interpreted: Pulse oximetry: on room air is 99 %. Interpretation: normal. Counseling: I had a detailed discussion with the patient and/or guardian regarding: the historical points, exam findings, and any diagnostic results supporting the discharge/admit diagnosis, the need for outpatient follow up, an ENT specialist, to return to the emergency department if symptoms worsen or persist or if there are any questions or concerns that arise at home. 01:24 Patient medically screened. jr8 Administered Medications: 01:33 Drug: [place] (HYDROcodone-acetaminophen) 10 mg-325 mg 1 tabs Route: PO; bb 01:33 Follow up: Response: RASS: Alert and Calm (0) bb 01:34 Drug: TORadol (ketorolac) 30 mg Route: IM; Site: right gluteus; bb 01:41 Follow up: Response: No adverse reaction; No change in condition bb Disposition: 03:06 Co-signature as Attending Physician, Zachariah Cifuentes MD. pkl Disposition: 03/09/21 01:24 Discharged to Home. Impression: Acute contact otitis externa. - Condition is Stable. - Discharge Instructions: Otitis Externa. - Prescriptions for Cipro 500 mg Oral Tablet - take 1 tablet by ORAL route every 12 hours for 10 days; 20 tablet. Ibuprofen 800 mg Oral Tablet - take 1 tablet by ORAL route every 8 hours As needed take with food; 30 tablet. - Family Work Release, Medication Reconciliation Form, Thank You Letter, Antibiotic Education, Prescription Opioid Use form. - Follow up: Eri Iglesias MD; When: 1 week; Reason: If symptoms return, Recheck today's complaints, Continuance of care, Re-evaluation by your physician. - Problem is new. - Symptoms have improved. - Notes: stop amoxicillin continue drops Signatures: Zachariah Cifuentes MD MD pkl Renea Neumann RN RN bb Ganga Mitchell PA PA jr8 Corrections: (The following items were deleted from the chart) 01:23 01:20 Head/Face: Normocephalic, atraumatic. Eyes: Pupils equal round and reactive to jr8 light, extra-ocular motions intact. Lids and lashes normal. Conjunctiva and sclera are non-icteric and not injected. Cornea within normal limits. Periorbital areas with no swelling, redness, or edema. Neck: Trachea midline, no thyromegaly or masses palpated, and no cervical lymphadenopathy. Supple, full range of motion without nuchal rigidity, or vertebral point tenderness. No Meningismus. Cardiovascular: Regular rate and rhythm with a normal S1 and S2. No gallops, murmurs, or rubs. Normal PMI, no JVD. No pulse deficits. Respiratory: Lungs have equal breath sounds bilaterally, clear to auscultation and percussion. No rales, rhonchi or wheezes noted. No increased work of breathing, no retractions or nasal flaring. Skin: Warm, dry with normal turgor. Normal color with no rashes, no lesions, and no evidence of cellulitis. MS/ Extremity: Pulses equal, no cyanosis. Neurovascular intact. Full, normal range of motion. Neuro: Awake and alert, GCS 15, oriented to person, place, time, and situation. Cranial nerves II-XII grossly intact. Motor strength 5/5 in all extremities. Sensory grossly intact. Cerebellar exam normal. Normal gait. jr8 01:43 01:24 03/09/2021 01:24 Discharged to Home. Impression: Acute contact otitis externa. bb Condition is Stable. Forms are Medication Reconciliation Form, Thank You Letter, Antibiotic Education, Prescription Opioid Use. Follow up: Eri Iglesias; When: 1 week; Reason: If symptoms return, Recheck today's complaints, Continuance of care, Re-evaluation by your physician. Problem is new. Symptoms have improved. jr8
--- NOTE | 2021-03-09 01:24 | ER ---
Nurse's Notes [facility] Name: Marylin Kendrick Age: 21 yrs Sex: Female : 2000 Arrival Date: 03/09/2021 Time: 01:01 Bed Waiting Private MD: None, None Diagnosis: Acute contact otitis externa Presentation: 03/09 01:15 Chief complaint: Patient states: she has had left ear pain since Saturday went to a bb clinic and was prescribed, piter/poly/hyr ear drops, amoxicillin 875 mg, and tylenol #3 but the pain is getting worse. Coronavirus screen: At this time, the client does not indicate any symptoms associated with coronavirus-19. Ebola Screen: No symptoms or risks identified at this time. Initial Sepsis Screen: Does the patient meet any 2 criteria? No. Patient's initial sepsis screen is negative. Does the patient have a suspected source of infection? No. Patient's initial sepsis screen is negative. Risk Assessment: Do you want to hurt yourself or someone else? Patient reports no desire to harm self or others. Onset of symptoms was March 06, 2021. 01:15 Method Of Arrival: Ambulatory bb 01:15 Acuity: JOSE A 5 bb 01:15 Acuity: JOSE A 4 bb Triage Assessment: 01:20 General: Appears in no apparent distress. uncomfortable, Behavior is calm, cooperative. bb Pain: Complains of pain in left ear Pain currently is 9 out of 10 on a pain scale. EENT: Reports pain in left ear. Neuro: Level of Consciousness is awake, alert, obeys commands, Oriented to person, place, time, situation. Respiratory: Respiratory effort is even, unlabored, Respiratory pattern is regular. Derm: Skin is pink, warm \T\ dry. Musculoskeletal: Circulation, motion, and sensation intact. 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 - Social history:: Smoking status: Patient denies any tobacco usage or history of. Assessment: 01:41 Reassessment: pt discharged from triage verbalized understanding of and agrees to plan bb of care discharge instructions given pt ambulated with steady gait to exit accompanied by family. Vital Signs: 01:15 BP 124 / 69; Pulse 93; Resp 18 S; Temp 97.6(O); Pulse Ox 99% on R/A; Weight 110.22 kg bb (R); Height 5 ft. 5 in. (165.10 cm) (R); Pain 9/10; 01:15 Body Mass Index 40.44 (110.22 kg, 165.10 cm) bb ED Course: 01:01 Patient arrived in ED. es 01:02 None, None is Private Physician. es 01:19 Triage completed. bb 01:20 Ganga Mitchell PA is PHCP. jr8 01:20 Zachariah Cifuentes MD is Attending Physician. jr8 01:20 Arm band placed on Patient Ganga ALMONTE in triage for pt evaluation. bb 01:24 Eri Iglesias MD is Referral Physician. jr8 01:42 No provider procedures requiring assistance completed. Patient did not have IV access bb during this emergency room visit. Administered Medications: 01:33 Drug: [place] (HYDROcodone-acetaminophen) 10 mg-325 mg 1 tabs Route: PO; bb 01:33 Follow up: Response: RASS: Alert and Calm (0) bb 01:34 Drug: TORadol (ketorolac) 30 mg Route: IM; Site: right gluteus; bb 01:41 Follow up: Response: No adverse reaction; No change in condition bb Outcome: 01:24 Discharge ordered by . jr8 01:43 Discharged to home ambulatory, with family. bb 01:43 Condition: stable 01:43 Discharge instructions given to patient, Instructed on discharge instructions, follow up and referral plans. no driving heavy equipment, medication usage, Demonstrated understanding of instructions, follow-up care, medications, Prescriptions given X 2. 01:43 Patient left the ED. bb Signatures: Lucie Bahena Brenda, RN RN bb Ganga Mitchell PA PA jr8
[2021-03-09] MEDS ORDERED: HYDROCODONE/APAP 10/325 TAB ONE (01:43)
[2021-03-09] MEDS ORDERED: KETOROLAC 30 MG/ML INJ ONE (01:44)
[2021-03-09 02:06] VITALS: BP 124/69; TEMP 97.6; O2SAT 99
== END 2021-03-09 01:43 | disposition home or self-care (01) ==
LOC: ER 00:58
DX: H60.532 Acute contact otitis externa, left ear (principal)
CPT/HCPCS: 96372; 99283